=== PATIENT | female | born 1945 | race Caucasian/White ===

== ENCOUNTER 2018-03-24 06:14 | Inpatient (IN) | payer MEDICARE, OTHER, SELFPAY ==
[2018-03-04 10:07] VITALS: BMI 30.8
[2018-03-24] VITALS (23 sets, daily range): BP systolic 83–125; BP diastolic 45–73; PULSE 77–104; RESP 11–20; TEMP 35.8–36.7; O2SAT 93–100; BMI 30.9
--- NOTE | 2018-03-24 07:14 | PM.PREOP ---
Pre-operative Note Interval Note Pre-op Check: Yes History & Physical Reviewed by Physician and Yes Exam Performed Changes: No
[2018-03-24] MEDS: LACTATED RINGERS 1,000 ML 42 ML IV ×3 (07:32→12:43)
[2018-03-24] MEDS: CEFAZOLIN 2 GM/100 ML FROZ.PIGGY IV ×3 (08:00→19:16)
--- NOTE | 2018-03-24 08:36 | SUR.OPER ---
Right lateral on padded OR table. Head on pillow, gel axillary roll, pillow to support left arm. Legs flexed, pillows between legs, gel pad under down leg and ankle. Multiple passes of 3 inch cloth tape across shoulder, hip, upper and lower legs to secure patient on OR table.
[2018-03-24] MEDS: THROMBIN (BOVINE) 5,000 UNIT VIAL 5000 UNIT TOP (08:45)
[2018-03-24] MEDS: SODIUM CHLORIDE 0.9% 1,000 ML, GENTAMICIN 80 MG IRR ×2 (08:46)
[2018-03-24] MEDS: VANCOMYCIN 1,000 MG VIAL 1000 MG TOP (11:20)
[2018-03-24] MEDS: BUPIVACAINE 0.5% (PF) 4 ML, MORPHINE-PF 4 MG, BUTORPHANOL 1 MG, fentaNYL 100 MCG INJ (11:20)
--- NOTE | 2018-03-24 11:48 | DI.RAD.S_ITS ---
PROCEDURE: XR T AND L SPINE 2 TO 3 VIEWS INDICATIONS: T-10 TO L-2 XLIF AND FUSION TECHNIQUE: 2 views acquired of the thoracolumbar spine. COMPARISON: [facility] [place], [place], XR LUMBAR SPINE 2 OR 3 VIEWS, 12/31/2017, 11:16. FINDINGS: Bones: No acute fractures or dislocations. Visualized inferior ribs appear intact. No suspicious bony lesions. Soft tissues: No suspicious soft tissue calcifications. IMPRESSION: T10-L2 bilateral transverse pedicle screws and bilateral vertical fixation rods noted, and there also is a finding of interbody disc prosthesis at L1-L2 and L2-L3, previously present. Dictated by: Merritt Smith M.D. on 03/24/2018 at 12:06 Approved by: Merritt Smith M.D. on 03/24/2018 at 12:09
[2018-03-24] MEDS: ACETAMINOPHEN IV 1,000 MG/100 ML VIAL 400 MG IV (12:30)
--- NOTE | 2018-03-24 12:51 | P.OP_ITS ---
Operative Date/Time/Diagnoses Date of procedure: 03/24/18 Time of procedure: 12:36 Pre-op diagnosis: Lumbar stenosis with radiculopathy History of lumbar laminectomy and fusion Lumbar scoliosis Post-op diagnosis: same Procedure & Clinicians Procedure: L1-2 anterior column osteotomy and fusion T10 through L2 posterior fusion T10 through L2 instrumentation Removal of old segmental posterior spinous instrumentation from L2 through S1 Iliac crest bone graft Revision left-sided laminotomy at L5-S1 Use of microscope Placement of epidural catheter Same procedure as scheduled: Yes Indications: [age] year old female with intractable pain from stenosis. They had failed conservative management and requested operative intervention. Risks and benefits of surgery were discussed and appropriate consents were obtained. Surgeon: Yinak Horta Structures Technician: Martha Marte Anesthesia Type: General Operative Notes Findings: None Closure Type: primary Specimen(s): none sent Implants & Drains: NuVasive MAS reline screws Applied: catheter Estimated Blood Loss (mL): 250 Procedure in detail: Patient was brought to the operating room and intubated on the table. Time-out was performed. They were then rolled over to the lateral decubitus position with the [id number]. The table was bent and they were taped down in the correct position. X-rays were taken to confirm a true AP and lateral. Preoperative antibiotics were given. The left flank was prepped and draped in standard sterile fashion. Using fluoroscopy, a 3 cm incision was made above the iliac crest. We bluntly dissected down with Metzenbaum scissors and split the 3 abdominal muscle layers. We dissected out the retroperitoneal space and using finger guidance, brought our 1st dilator down to the psoas muscle. Using neuromonitoring and fluoroscopy, we placed it through the psoas onto the L1-2 disc space in an anterior position and gradually pulled the dilator posteriorly along the disc space. We placed our guidewire and measured our depth for the retractor. We then dilated with the next 2 dilators and then placed our retractor over the dilators. Position was confirmed with fluoroscopy and the retractor was locked down to the bar. We opened up the retractor and checked with neuro monitoring. We then placed the ac and again checked with neuro monitoring. The retractor was opened further and the ALL retractor was placed. An annulotomy was performed. We then performed a complete diskectomy with ring curette, pituitary, box osteotome. A Ivey was advanced across the disc space under fluoroscopy to release osteophytes on the far lateral side. We used an ALL retractor to protect the vessels anteriorly and released the anterior longitudinal ligament and anterior osteophytes. We could then pass our trials through there and significantly opened up the anterior column. This completed the anterior column osteotomy. We then used sequentially larger trials and confirmed under fluoroscopy. An XLIF cage was packed with Osteocell bone graft and impacted into the L1-2 disc space with fluoroscopy for the anterior fusion at this level. The wound was irrigated. The retractor was closed down. The ac was removed. We carefully removed the retractor with direct visualization to make sure there was no neurovascular or abdominal injury. Final x-rays were taken. The muscle fascia was closed, superficial tissue was closed. The skin was closed. Sterile dressing was placed. The patient was then rolled over on the well-padded prone position on the Fawad table. We used fluoroscopy to confirm that her old incision was over the screws. We then marked up to T10 along the level of her pedicles on the left hand side and then made 1 long incision utilizing her previous incision. Also using fluoroscopy we made an incision from T10-L2 over the right pedicles. Bovie was used to split the fascia on both sides. Using neural monitoring and fluoroscopy, we advanced Jamshidi needles down the bilateral pedicles of T10 through L2. These were switched to guidewires. We then tapped and placed our minimally invasive screws on the right side. We then measured, placed a arik and locked it down. This wound was irrigated. The fascia was closed. We then did a Jennifer muscle-splitting approach on the left side along the course of our guidewires until we came down to the transverse processes and facets from T10 through L2. A bur was used to decorticate the bone. We kept going down and exposed our old hardware. There was massive amounts of bony overgrowth at the L5-S1 fusion level and this was cleared off with a rongeur and osteotomes until we could expose the screws. The old screws were and arik were removed. We then placed a guidewire down the pedicle hole at L2. We then used fluoro and monitoring to tap over our guidewires and placed our screws from T10 through L2 on the left. A arik was measured placed and locked down. The wound was irrigated. We then carefully dissected medially and exposed the previous laminotomy at L5- S1 and cleared away the massive overgrowth until we were over the spinal canal as well as out laterally over the bony fusion. We then brought in the microscope. A left-sided revision laminectomy was performed at L5-S1 with an osteotome, a bur, a curette, and Kerrison rongeurs. Once we had the canal open we traced proximally with our Kerrison until we could expose our L5 root as it came off the dura. We then used a bur and osteotomes to remove the massive bony overgrowth. We started using the Kerrison to trace out along the L5 nerve root. We used the osteotome to expand the tunnel that had wrapped around the nerve root. We dissected and exposed all the way from pedicle to pedicle from L5-S1. We removed all the posterior overgrowth until we could easily swipe a ball probe cephalad, into the canal, distally along the S1 nerve root and all the way out laterally with a fully exposed L5 nerve root. The wound was copiously irrigated. A small stab incision was made over the PSIS and a Jamshidi needle was placed into the iliac crest and several mL of bone marrow was aspirated. This was mixed with our locally harvested bone graft as well as the remaining Osteocell and placed in the posterolateral gutter for fusion at T10 through L2. A deep drain was placed into the large empty space where we had removed her previous bony overgrowth. An epidural catheter was primed with 4mL of 0.5% bupivacaine, 100 mcg fentanyl, 4 mg Duramorph, 1 mg Stadol. The dura was depressed under the cephalad lamina with a ball probe and the epidural catheter was gently advanced 6 cm cephalad. The fascia was then closed. The epidural was then injected without resistance. The catheter was pulled and we closed more over the fascia. Vancomycin powder was placed in the wounds. The superficial and skin were closed. Sterile dressing was placed. The patient was then rolled over, extubated, brought to the recovery room with no complications. Complications: none Condition: stable Disposition: PACU Plan for aftercare: Inpatient. Up with physical therapy.
[2018-03-24] MEDS: HYDROMORPHONE 2 MG INJ 0.5 MG IV ×4 (13:15→13:35)
[2018-03-24] MEDS: LORazepam 2 MG/ML SYRINGE 0.25 MG IV ×2 (13:25→14:00)
[2018-03-24] MEDS: fentaNYL 100 MCG/2 ML INJ 50 MCG IV ×2 (13:44→14:17)
[2018-03-24] MEDS: hydrOXYzine 50 MG/ML INJ 25 MG IM (14:16)
--- NOTE | 2018-03-24 14:51 | SUR.PHASEI ---
PT TO ACUTE CARE, HAND OFF OF CARE TO RN. PT ABLE TO REST QUIETLY FOR SHORT PERIODS OF TIME, STATES PAIN IS BETTER, REMAINS ON OXYGEN, BACK DRESSING DRY AND INTACT, HEMOVAC PATENT, PT MOVING ALL EXTREMITIES.
[2018-03-24] MEDS: HYDROMORPHONE 1 MG INJ 0.5 MG IV ×3 (15:57→21:51)
[2018-03-24] MEDS: LACTATED RINGERS 1,000 ML 125 ML IV (15:57)
--- NOTE | 2018-03-24 16:02 | PC.NURSE ---
Post-op (late entry)- Arrived to room 210 approx 1430 from PACU. Drowsy but awakened easily to voice/touch. SpO2 on 2L 96-98%, cont pulse ox in place. VSS. Dressings to mid low back and L flank C/D/I. Hemovac patent and intact. Castillo to gravity, urine clear yellow. Denies N/V. Taking ice chips and water. Able to move all extremities. Oriented to room and call light. Fall precautions in place, bed alarm on.
[2018-03-24] MEDS: hydrOXYzine pamoate 25 MG CAPSULE PO ×2 (16:03→21:48)
[2018-03-24] MEDS: HYDROMORPHONE 2 MG TABLET PO (16:03)
[2018-03-24] MEDS: METOCLOPRAMIDE 10 MG/2 ML INJ IV (16:10)
[2018-03-24] MEDS: HYDROMORPHONE 4 MG TABLET PO ×2 (17:59→21:47)
[2018-03-24] MEDS: TRAMADOL 50 MG TABLET PO (18:37)
[2018-03-24] MEDS: diazePAM 2 MG TABLET PO (19:16)
[2018-03-24] MEDS: INSULIN ASPART 100 UNIT/ML INSULN PEN SUBCUT (19:23)
[2018-03-24] MEDS: INSULIN ASPART 100 UNIT/ML 10ML VIAL 11 UNIT SUBCUT (19:25)
[2018-03-24] MEDS: INSULIN GLARGINE 100 UNIT/ML 3ML PEN 60 UNIT SUBCUT (21:32)
[2018-03-24] MEDS: SIMVASTATIN 10 MG TABLET 5 MG PO (21:46)
[2018-03-24] MEDS: SENNOSIDES 8.6 MG TABLET 17.2 MG PO (21:46)
[2018-03-24] MEDS: GABAPENTIN 300 MG CAPSULE PO (21:47)
[2018-03-24] MEDS: ACETAMINOPHEN 325 MG TABLET 975 MG PO (21:48)
[2018-03-24] MEDS: DOCUSATE 100 MG CAPSULE PO (21:48)
[2018-03-25] VITALS (9 sets, daily range): BP systolic 71–120; BP diastolic 41–70; PULSE 80–105; RESP 16–20; TEMP 36.2–37.6; O2SAT 91–99
[2018-03-25] MEDS: LACTATED RINGERS 1,000 ML 125 ML IV (00:40)
[2018-03-25] MEDS: TRAMADOL 50 MG TABLET PO ×2 (00:47→04:50)
[2018-03-25] MEDS: diazePAM 2 MG TABLET PO ×2 (00:48→06:24)
[2018-03-25] MEDS: hydrOXYzine pamoate 25 MG CAPSULE PO ×3 (00:48→08:54)
[2018-03-25] MEDS: HYDROMORPHONE 4 MG TABLET PO ×2 (00:52→04:07)
[2018-03-25] MEDS: CEFAZOLIN 2 GM/100 ML FROZ.PIGGY IV (04:06)
[2018-03-25] MEDS: HYDROMORPHONE 1 MG INJ 0.5 MG IV ×2 (04:09→06:33)
[2018-03-25 06:09] LABS: Blood Urea Nitrogen 27 mg/dL (7-17); Calcium 8.5 mg/dL (8.4-10.2); Carbon Dioxide 30 mmol/L (22-32); Chloride 96 mmol/L (98-107); Estimated Glomerular Filt Rate > 60.0 mL/min (>60); Glucose 179 mg/dL (80-110); HEMOLYSIS < 15 (0-50); Potassium 4.5 mmol/L (3.4-5.1); Sodium 132 mmol/L (137-145)
--- NOTE | 2018-03-25 06:31 | PM.PNPO.1 ---
Subjective Date Patient Seen: 03/25/18 Time Patient Seen: 06:32 Interval history: Pain was manageable last evening about a 7/10. However over the past few hours she has taken all of her pain medication and the spasms in her back are over 10. Denies any pain in the legs. Exam Vital Signs (past 8 hours): - 03/25/18 00:00 03/25/18 04:00 03/25/18 06:10 Temperature 98.4 F 99.7 F H 99.7 F H Pulse Rate 102 H 104 H Respiratory Rate 17 18 Blood Pressure 93/51 L 89/53 L Pulse Oximetry 99 94 Oxygen Delivery Method Nasal Cannula Oxygen Flow Rate 2 Const Orientation: alert and oriented x3 Back/Spine/Pelvis Other: 5/5 motor both lower extremities. Dressing has been reinforced but new dressing is clean dry intact Objective Labs Result Diagrams: 03/25/18 05:45 03/25/18 05:45 Labs: Laboratory Results - last 24 hr 03/25/18 03/25/18 05:45 05:45 Hgb 9.0 L Hct 26.0 L Sodium 132 L Potassium 4.5 Chloride 96 L Carbon Dioxide 30 BUN 27 H Creatinine 0.90 Estimated GFR > 60.0 BUN/Creatinine Ratio 30.0 H Glucose 179 H Calcium 8.5 Assessment & Plan Post-op Postoperative Procedures Operation Date: 03/24/18 07:45 Actual Procedures Side Surgeon p T10-L2 Post Instru. Fusion w/Bone Graft. L1-2 Ant Osteotomy & Instru. Fusion. RMVL old screws. Revision Laminectomy L5-S1(LEFT) Yinka Horta MD we are going to put her on a MASH PREPARATORY OPERATOR to try to give her better pain relief so she can start mobilizing. She does have some acute blood loss anemia. Her vitals are stable and she does not need a transfusion but we will recheck this again tomorrow. I have let her know that I will be out of town for the next few days but my partners will be available if there are any issues.
--- NOTE | 2018-03-25 07:55 | PC.NURSE ---
late entry for 11-7 shift: pt's back pain at start of shift was rated 7/10.by aprox half into shift pain began incr'ing depite medicating w/4mg po dilaudid,0.5mg iv dilaudid, tramadol 50mg po, vistaril 25mg, and 2mg po valium as ordered. also ice pack to area and repositioning w/2 assist q 2hrs. by 0600 pt rated pain [address] Horta in house at that time,relayed info r/t incr pain, initial low bp's. into see pt. new order to start dilaudid clinical project leader 0.2/10/6 w/1mg/hr basal dose, started aprx 0650 w/loading dose of 0.4mg, explained to pt settings and use, by 0700 pt stated pain decr'd to 18.
[2018-03-25] MEDS: MINOCYCLINE HCL 100 MG CAPSULE PO (08:49)
[2018-03-25] MEDS: FUROSEMIDE 40 MG TABLET 80 MG PO (08:50)
[2018-03-25] MEDS: GEMFIBROZIL 600 MG TABLET PO ×2 (08:50→17:15)
[2018-03-25] MEDS: ACETAMINOPHEN 325 MG TABLET 975 MG PO ×3 (08:50→20:55)
[2018-03-25] MEDS: LISINOPRIL 5 MG TABLET PO (08:50)
[2018-03-25] MEDS: DOCUSATE 100 MG CAPSULE PO ×2 (08:51→20:55)
[2018-03-25] MEDS: ASPIRIN EC 81 MG TABLET PO (08:51)
[2018-03-25] MEDS: SPIRONOLACTONE 50 MG TABLET 100 MG PO (08:52)
[2018-03-25] MEDS: INSULIN ASPART 100 UNIT/ML INSULN PEN SUBCUT ×3 (09:08→17:15)
[2018-03-25] MEDS: DULOXETINE 30 MG CAPSULE 60 MG PO (09:11)
--- NOTE | 2018-03-25 10:13 | PT.IIE ---
Current Diagnoses Scoliosis, unspecified (03/24/18) Spinal stenosis, lumbar region with neurogenic claudication (03/24/18) Arthrodesis status (03/24/18) Surgery Performed Operation Date: 03/24/18 07:45 Actual Procedures p T10-L2 Post Instru. Fusion w/Bone Graft. L1-2 Ant Osteotomy & Instru. Fusion. RMVL old screws. Revision Laminectomy L5-S1(LEFT) - Yinka Horta MD Surgical History (Last Updated 03/04/18 @ 10:50 by Elsie Arechiga RN) History of bilateral cataract extraction (Acute) History of tonsillectomy and adenoidectomy (Acute) History of total right hip arthroplasty (Acute) Hx of appendectomy (Acute) Hx of bilateral breast reduction surgery (Acute) Hx of cholecystectomy (Acute) Hx of right breast biopsy (Acute) S/P lumbar laminectomy (Acute) S/p bilateral blepharoplasty (Acute) Medical History (Last Updated 03/04/18 @ 10:39 by Elsie Arechiga RN) Arthritis (Acute) Asthma (Acute) BCC (basal cell carcinoma of skin) (Acute) Depression (Acute) Diabetes (Acute) Edema (Acute) GERD (gastroesophageal reflux disease) (Acute) [place] (hard of hearing) (Acute) History of hysterectomy (Acute) Low back pain (Acute) Melanoma (Acute) Numbness (Acute) Osteoarthritis (Acute) Psoriasis (Acute) Sciatica (Acute) Scoliosis (Acute) Whiplash (Acute) Physical Therapy Inpatient Evaluation/Re-Eval M1 PT/OT-IP Prior Functional Status Start: 03/25/18 11:24 Freq: NEEDED Status: Active Protocol: Document 03/25/18 10:13 AB (Rec: 03/25/18 11:41 AB [id number]) Medical Review Prior Functional Status Medical History Reviewed Yes Communication able to make needs known Mobility and Gait pt stated that she is modified independent with all mobilities and ambulation without AD but occasionally uses a SPC for long distance mobility Social History Household Members none Living Arrangements Mobile home Number of Floors (Floors) One Floor Number of Stairs To Enter/Railing? has 3 steps to enter with bilateral rails Home Environment Standard Height Toilet Walk in Shower Home Equipment Front Wheel Walker Straight Cane Hand Held Shower Bed Rails Grab Bars In Shower Additional Social History Comment pt's friend will stay with pt as long as pt needs assistance . uses sides of door frame to assist her with getting up from the toilet has a stool to step up to get into the bed M2 PT-IP Current Condition Start: 03/25/18 11:24 Freq: NEEDED Status: Active Protocol: Document 03/25/18 10:13 AB (Rec: 03/25/18 11:41 AB [id number]) Physical Therapy Current Condition Current Condition Evaluation Date 03/25/18 Treatment Diagnosis s/p T10-L2 posterior fusion and instrumentation; difficulty in walking Onset Date 03/24/18 Precautions Lumbar Precautions Log Roll No Twisting Limit Bending Lifting Restriction of 10 lbs Gait Belt above Incisional Area M3 PT-IP Subjective Start: 03/25/18 11:24 Freq: NEEDED Status: Active Protocol: Document 03/25/18 10:13 AB (Rec: 03/25/18 11:41 AB [id number]) Subjective Physical Therapy Visit Type Type Initial Evaluation Visit Start Time 10:13 Visit Stop Time 11:04 Total Visit Minutes 51 Number of PROFILE MILL OPERATOR TAPE CONTROL Visits 0 Physical Therapy Visit Comments Patient Comments pt agreeable to do PT Patient Goals to go home Therapy Pain Assessment Pain When Pain Assessed At Rest Pain Present Pain Present Pain Reported Location lower back Intensity 6 Scale Used Numeric (1 - 10) Pain Management Techniques Apply Cold Re-positioning Timing of Activity with Medications M4 PT-IP Mobility and Gait Start: 03/25/18 11:24 Freq: NEEDED Status: Active Protocol: Document 03/25/18 10:13 AB (Rec: 03/25/18 11:41 AB [id number]) PT-Bed Mobility Assessment Rolling Type of Rolling Log Rolling Level of Assist Maximal Assistance 1 Person Assistance Supine to Sit Supine to Sit Minimal Assistance 1 Person Assistance Bedrails Scooting Scooting to Edge of Bed Minimal Assistance PT-Transfer Assessment Sit to and From Stand Sit to and from Stand Moderate Assistance 1 Person Assistance Use of Upper Extremities Equipment Transfer Assistive Device Gait Belt Front Wheeled Walker Orthotic/Prosthetic Devices or Brace: No Transfers Transfer Destination Chair Transfer Technique Stand Step Pivot Transfer Ability Level of Assist Moderate Assistance 1 Person Assistance Use of Upper Extremities Gait Assessment Gait Gait Assistance Required: Moderate Assistance 1 Person Assist Distance (Feet) 20 Able to Maintain Weight Bearing Status Yes During Gait Assistive Devices Assistive Device Gait Belt Front Wheeled Walker Orthotic/Prosthetic Devices or Brace: No Gait Deviations General Gait Pattern Antalgic Decreased Stride Length Decreased Feet Clearance Factors Limiting Gait Function Factors Limiting Gait Function Decreased Activity Tolerance Decreased Strength Limited Range of Motion Pain Poor Balance Poor Safety Awareness M5 PT-IP Objective Assessments Start: 03/25/18 11:24 Freq: NEEDED Status: Active Protocol: Document 03/25/18 10:13 AB (Rec: 03/25/18 11:41 AB [id number]) Orientation Orientation/Cognition Level of Alertness Alert Orientation Name Age Birthday Month Date Year Day of Week Place Situation Safety Awareness Decreased Safety Awareness Gross Range of Motion Lower Extremity ROM Assessment Within Functional Limits Strength Lower Extremity Strength Assessment Bilaterally Impaired Hip 4-/5 Knee 4-/5 Muscle Tone Muscle Tone WNL Yes M6 PT-IP Treatment Start: 03/25/18 11:24 Freq: NEEDED Status: Active Protocol: Document 03/25/18 10:13 AB (Rec: 03/25/18 11:41 AB [id number]) Physical Therapy Treatment Education Education Provided Precautions Weight Bearing Status Post-Op Packet Safety M7 PT-IP Assessment and Plan Start: 03/25/18 11:24 Freq: NEEDED Status: Active Protocol: Document 03/25/18 10:13 AB (Rec: 03/25/18 11:41 AB [id number]) PT Summary Assessment and Plan Potential Rehabilitation Potential Fair Status of Condition at Evaluation Evolving Summary Impairments Pain ROM Strength Balance Coordination Bed Mobility Transfers Gait Activity Tolerance Assessment Summary pt requiring one person assist with mobility. d/c plan depending on progress. caregiver training and stair climbing training will be conducted when appropriate. will continue to assess. Goals Bed Mobility Goal Standby Assistance Transfer Goal Standby Assistance Front Wheeled Walker Gait Goal Standby Assistance Front Wheel Walker Gait Distance 150 Other Goals up/down 3 steps with bialteral rails SBA Days to Meet Goals 3 Frequency of Treatment Frequency Of Treatment Twice a Day Treatment Plan Physical Therapy Treatment Plan Bed Mobility Training Transfer Training Gait Training Therapeutic Exercise Balance Retraining Post Op Education Discharge Planning Hot or Cold Pack Neuromuscular Re-ed Coordination Retraining Manual Therapy Recommendations To Nursing Amount of Assist Needed 1 Person Assist Discharge Recommendations PT Discharge Recommendations Home with 27/01 Assist Home Health
--- NOTE | 2018-03-25 11:58 | OT.IP.EVAL ---
Current Diagnoses Scoliosis, unspecified (03/24/18) Spinal stenosis, lumbar region with neurogenic claudication (03/24/18) Arthrodesis status (03/24/18) Surgery Performed Operation Date: 03/24/18 07:45 Actual Procedures p T10-L2 Post Instru. Fusion w/Bone Graft. L1-2 Ant Osteotomy & Instru. Fusion. RMVL old screws. Revision Laminectomy L5-S1(LEFT) - Yinka Horta MD Past Medical History (Last Updated 03/04/18 @ 10:39 by Elsie Arechiga RN) Arthritis (Acute) Asthma (Acute) BCC (basal cell carcinoma of skin) (Acute) Depression (Acute) Diabetes (Acute) Edema (Acute) GERD (gastroesophageal reflux disease) (Acute) FOND DU LAC (hard of hearing) (Acute) History of hysterectomy (Acute) Low back pain (Acute) Melanoma (Acute) Numbness (Acute) Osteoarthritis (Acute) Psoriasis (Acute) Sciatica (Acute) Scoliosis (Acute) Whiplash (Acute) Surgical History (Last Updated 03/04/18 @ 10:50 by Elsie Arechiga RN) History of bilateral cataract extraction (Acute) History of tonsillectomy and adenoidectomy (Acute) History of total right hip arthroplasty (Acute) Hx of appendectomy (Acute) Hx of bilateral breast reduction surgery (Acute) Hx of cholecystectomy (Acute) Hx of right breast biopsy (Acute) S/P lumbar laminectomy (Acute) S/p bilateral blepharoplasty (Acute) Occupational Therapy Inpatient Evaluation/Re-Eval M1 PT/OT-IP Prior Functional Status Start: 03/25/18 11:24 Freq: NEEDED Status: Active Protocol: Document 03/25/18 11:58 DENI (Rec: 03/26/18 16:17 DENI [id number]) Medical Review Prior Functional Status Medical History Reviewed Yes Diet/Fluid Consistency Regular Communication WNL Mobility and Gait pt stated that she is modified independent with all mobilities and ambulation without AD but occasionally uses a SPC for long distance mobility Activities of Daily Living and IADL's Pt indep with all self care, IADLS, lives alone, drives. 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 Social History Household Members none Living Arrangements Mobile home Number of Floors (Floors) One Floor Number of Stairs To Enter/Railing? 3 stairs with B rails to enter Home Environment Standard Height Toilet Walk in Shower Built-In Shower Seat Bidet Home Equipment Front Wheel Walker Hand Held Shower Long Handled Sponge Long Handled Shoe Horn Senior Reservations Agent Sock Aid Grab Bars In Shower Employment Status Retired Additional Social History Comment language translator and long sponge provided; pt was walker bag and tray; pt states she will borrow RTS with siderails M2 OT-IP Current Condition Start: 03/26/18 11:24 Freq: Status: Active Protocol: Document 03/25/18 11:58 PJM (Rec: 03/26/18 16:17 [facility] [id number]) Occupational Therapy Current Condition Current Condition Evaluation Date 03/25/18 Treatment Diagnosis decreased self care, mobility s/p T10-L2 fusion, removal of old hardware Diagnosis Onset Date 03/24/18 Post Operative Precautions Lumbar Precautions Log Roll No Twisting Limit Bending Lifting Restriction of 10 lbs Gait Belt above Incisional Area M3 OT- IP Subjective and Pain Start: 03/26/18 11:24 Freq: Status: Active Protocol: Document 03/25/18 11:58 PJM (Rec: 03/26/18 16:17 [facility] [id number]) OT- Subjective Occupational Therapy Visit Type Type Initial Evaluation Visit Start Time 11:30 Visit Stop Time 11:58 Total Visit Minutes 28 Notes Pt drowsy from STRATEGIC ALLIANCES MANAGER pain meds and had poor pain control overnight per chart notes. Occupational Therapy Visit Comments Patient Comments This pain is really bad. Patient/Caregiver Goals to go home with 24 assist from close friend OT Pain Assessment Pain When Pain Assessed After Treatment Pain Present Pain Present Pain Reported Location lower back Intensity 9 Scale Used Numeric (1 - 10) Description Aching Acute Pain Behaviors Guarding Wincing Management Techniques Distraction Timing of Activity with Medications M4 OT- IP ADL's Start: 03/26/18 11:24 Freq: Status: Active Protocol: Document 03/25/18 11:58 PJM (Rec: 03/26/18 16:17 [facility] [id number]) OT [id number]-[id number] General Evaluation Self-Feeding Ability Independent OT ADL-Grooming General Evaluation Grooming Ability Standby Assistance Areas Needing Assistance Face Washing Comments OT Grooming Comments seated in chair, pt declines other grooming at this time OT ADL-Oral Care Comments Oral Care Comments pt declined this session OT ADL-Dressing General Eval Lower Body Dressing Ability Total Assistance Areas Needing Assistance Underpants/Brief Pants/Shorts Socks Shoes Assistive Devices Dressing Assistive Devices Long Handled Shoe Horn Senior Reservations Agent Sock Aid Comments OT Dressing Comments pt familiar with use of language translator and sock aid, but states she rarely wears socks OT ADL-Toileting General Evaluation Toileting Ability Total Assistance Areas Needing Assistance Empty Catheter or Colostomy Comments OT Toileting Comments zendejas at present OT ADL-Bathing Comments OT Bathing Comments to be assessed as activity level improves M5 OT- IP IADL's Start: 03/26/18 11:24 Freq: Status: Active Protocol: Document 03/25/18 11:58 PJM (Rec: 03/26/18 16:17 [facility] [id number]) OT-Instrumental Activities of Daily Living Deficits IADL Deficits Identified Deficits Home Safety Awareness Awareness of Need for Assistance at Home Good Awareness Ability to Problem Solve Emergency Able to Problem Solve Situations Medication Management Medication Management No Deficits Identified Money Management Money Management No Deficits Identified Meal Preparation Meal Preparation Caregiver Provides Assist Meal Preparation Comments friend to assist until pt able Proof Coins Inspector Proof Coins Inspector Caregiver Provides Assist Proof Coins Inspector Comments friend to assist until pt able Driving Driving Caregiver Provides Assist Driving Comments friend to assist until pt able M6 OT- IP Functional Cognition Start: 03/26/18 11:24 Freq: Status: Active Protocol: Document 03/25/18 11:58 PJM (Rec: 03/26/18 16:17 [facility] [id number]) Cognitive Factors Limiting Selfcare Function Cognitive Ability Level of Alertness Drowsy Patient Orientation Name Age Birthday Month Date Year Day of Week Place Situation Attention Span Ability Capable of Focused Attention Ability to Follow Commands Able to Follow One Step Commands Cognitive Comments Cognitive Assessment Comments Pt quite drowsy from STRATEGIC ALLIANCES MANAGER but oriented. Too drowsy to participate in education re: adapted ADLs this session. OT- Vision and Hearing OT- Hearing Assessment OT- Hearing Assessment WFL OT- Vision Assessment Visual Acuity WFL Glasses All The Time Vision Assessment Comments Pt denies any recent changes. M7 OT- IP Mobility and Balance Start: 03/26/18 11:24 Freq: Status: Active Protocol: Document 03/25/18 11:58 PJM (Rec: 03/26/18 16:17 [facility] [id number]) OT-Transfer Assessment Comments Mobility Comments Pt seen up in chair this session. See P.T. notes. Pt slow to mobilize due to high pain level. OT- Gait Assessment Comments Gait Ability Comments Pt seen up in chair this session. See P.T. notes. Pt slow to mobilize due to high pain level. OT- Balance Assessment Comments Other Balance Tests/Deviations/Treatment Pt seen up in chair this : session. See P.T. notes. Pt slow to mobilize due to high pain level. M8 OT- IP Objective Assessments Start: 03/26/18 11:24 Freq: Status: Active Protocol: Document 03/25/18 11:58 PJM (Rec: 03/26/18 16:17 PJ [id number]) OT Gross Range of Motion Upper Extremity Range of Motion Assessment Within Functional Limits OT Strength Upper Extremity Strength Assessment Within Functional Limits OT- Coordination Assessment Comments Coordination Comments BUE WFL OT-Muscle Tone Assessment Muscle Tone WNL Yes OT Sensation Assessment Comments Summary Comments Pt reports intermittent numbness in fingertips which is spinal related not from her diabetes per her MD. Edema Edema Absent M9 OT- IP Assessment and Plan Start: 03/26/18 11:24 Freq: Status: Active Protocol: Document 03/25/18 11:58 PJM (Rec: 03/26/18 16:17 PJ [id number]) OT Summary Assessment and Plan Potential Rehabilitation Potential Good Analytic Complexity at Evaluation Low Summary OT Impairments Pain Strength Balance Functional Mobility Grooming Dressing Toileting Bathing Toilet Transfers Shower Transfers Assessment Summary Low complexity OT assessment completed with pt participation limited today by decreased pain control and drowsiness from STRATEGIC ALLIANCES MANAGER. Pt currently has significant performance deficits in all functional mobility/transfers, standing grooming, dressing, bathing and toileting. Pt's goal is to d/c home with 24 hr assist from close friend who cannot do much lifting. Further d/c recommendations to follow as pt progresses here. Goals Grooming Goal Standby Assistance Dressing Goal Standby Assistance Toileting Goal Standby Assistance Bathing Goal Minimal Assistance Hand Held Shower Sprayer Toilet Transfer Goal Standby Assistance Raised Toilet Seat With Rails Shower Transfer Goal Contact Guard Assistance Patient/Caregiver Education Goal Demonstrate Post-Op Precautions Demonstrate Energy Conservation and Pacing Caregiver Independent Assisting Patient OT-Other Goals Grooming to be standing with good body mechanics and safety awareness. Days to Meet Goals 5 Frequency of Treatment Frequency Of Treatment Once a Day Treatment Plan OT Treatment Plan ADL Training Functional Mobility Patient/Family Education Discharge Planning Discharge Recommendations OT Discharge Recommendations Home with 24/7 Assist Other Discharge Recommendations vs SNF pending progress
--- NOTE | 2018-03-25 12:18 | CM.DPC ---
Discharge Planning/Care Management DCP: assessment: case received, EMR reviewed and met this morning with pt. Introduced self and role. 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 Surgeon: Dr. Horta Payer: Medicare and [employer]. INPT admission order: confirmed by UR RN. Pt experienced a great deal of pain during the night and at time of this discussion she had not been up yet with PT or OT. She noted her plan was for home with her friend to say, HH PT and outpt PT at a clinic she has used before in [place] but I would have to drive myself so it may take awhile.. She is aware of her snf rehab benefit and says she is very open to what is best, noting she did not expect this level of pain. She has had prior spinal surgeries with Dr. Horta, the last one at [facility] and from there to a snf. P: in process. [facility] is not yet alerted to possible need. Will await PT/OT input and DCP team will be following. CM Discharge Assessment Start: 03/25/18 12:14 Freq: Status: Active Protocol: Document 03/25/18 12:14 ITV (Rec: 03/25/18 12:18 ITV [id number]) Discharge Planning Assessment History Provided By Patient Medical Record Prior Living Arrangements Mobile home Household Members none Comment pt has a long time friend who is an RN coming to stay with her during her recovery. Comment At this time pt is open to whatever d/c disposition the care team recommends. She had planned on home with her friend and [facility]: PT but is aware of the snf benefit and has used this before. Medicare Choice List Provided Yes SNF/HH Preference provided at this time for [facility]: choice: [facility] if they can see her 24-48 hrs after d/c. Whiteboard Updated in Patient Room with Yes name and ext. # of Cna Pct Review Status In Process Next Review Type Continued Stay Review
--- NOTE | 2018-03-25 14:05 | PT.IPTN ---
Current Diagnoses Scoliosis, unspecified (03/24/18) Spinal stenosis, lumbar region with neurogenic claudication (03/24/18) Arthrodesis status (03/24/18) Surgery Performed Operation Date: 03/24/18 07:45 Actual Procedures p T10-L2 Post Instru. Fusion w/Bone Graft. L1-2 Ant Osteotomy & Instru. Fusion. RMVL old screws. Revision Laminectomy L5-S1(LEFT) - Yinka Horta MD Physical Therapy Treatment Note M2 PT-IP Current Condition Start: 03/25/18 11:24 Freq: NEEDED Status: Active Protocol: Document 03/25/18 10:13 AB (Rec: 03/25/18 11:41 AB [id number]) Physical Therapy Current Condition Current Condition Evaluation Date 03/25/18 Treatment Diagnosis s/p T10-L2 posterior fusion and instrumentation; difficulty in walking Onset Date 03/24/18 Precautions Lumbar Precautions Log Roll No Twisting Limit Bending Lifting Restriction of 10 lbs Gait Belt above Incisional Area M3 PT-IP Subjective Start: 03/25/18 11:24 Freq: NEEDED Status: Active Protocol: Document 03/25/18 14:05 AB (Rec: 03/25/18 16:20 AB [id number]) Subjective Physical Therapy Visit Type Type Treatment Note Visit Start Time 14:05 Visit Stop Time 14:46 Total Visit Minutes 41 Number of CLINICAL NUTRITIONIST Visits 0 Physical Therapy Visit Comments Patient Comments pt stated that she sat up on the chair too long and RLE is now numb Therapy Pain Assessment Pain When Pain Assessed At Rest Pain Present Pain Present Pain Reported Location lower back Intensity 30 Scale Used Numeric (1 - 10) Pain Behaviors Guarding Moaning Restlessness Pain Management Techniques Apply Cold Timing of Activity with Medications M4 PT-IP Mobility and Gait Start: 03/25/18 11:24 Freq: NEEDED Status: Active Protocol: Document 03/25/18 14:05 AB (Rec: 03/25/18 16:20 AB [id number]) PT-Bed Mobility Assessment Rolling Type of Rolling Log Rolling Level of Assist Moderate Assistance 1 Person Assistance Sit to Supine Sit to Supine Moderate Assistance 1 Person Assistance PT-Transfer Assessment Sit to and From Stand Sit to and from Stand Moderate Assistance 1 Person Assistance Gait Assessment Gait Gait Assistance Required: Minimum Assistance Moderate Assistance Distance (Feet) 30 Able to Maintain Weight Bearing Status Yes During Gait Assistive Devices Assistive Device Gait Belt Front Wheeled Walker Orthotic/Prosthetic Devices or Brace: No Gait Deviations General Gait Pattern Antalgic Decreased Stride Length Decreased Feet Clearance Lateral Trunk Lean Factors Limiting Gait Function Factors Limiting Gait Function Decreased Activity Tolerance Decreased Strength Limited Range of Motion Pain Poor Balance Poor Safety Awareness Comments Gait Comments pt can be impulsive M5 PT-IP Objective Assessments Start: 03/25/18 11:24 Freq: NEEDED Status: Active Protocol: Document 03/25/18 10:13 AB (Rec: 03/25/18 11:41 AB [id number]) Orientation Orientation/Cognition Level of Alertness Alert Orientation Name Age Birthday Month Date Year Day of Week Place Situation Safety Awareness Decreased Safety Awareness Gross Range of Motion Lower Extremity ROM Assessment Within Functional Limits Strength Lower Extremity Strength Assessment Bilaterally Impaired Hip 4-/5 Knee 4-/5 Muscle Tone Muscle Tone WNL Yes M6 PT-IP Treatment Start: 03/25/18 11:24 Freq: NEEDED Status: Active Protocol: Document 03/25/18 14:05 AB (Rec: 03/25/18 16:20 AB [id number]) Physical Therapy Treatment Education Education Provided Precautions Weight Bearing Status Post-Op Packet Safety M7 PT-IP Assessment and Plan Start: 03/25/18 11:24 Freq: NEEDED Status: Active Protocol: Document 03/25/18 14:05 AB (Rec: 03/25/18 16:20 AB [id number]) PT Summary Assessment and Plan Potential Rehabilitation Potential Fair Summary Impairments Pain ROM Strength Balance Coordination Sensation Tone Cognition Bed Mobility Transfers Gait Activity Tolerance Progress Towards Goals Slow Progress due to Pain Slow Progress due to Activity Tolerance Assessment Summary pt requiring mod A and cues with mobility. pt's friend who will assist pt at home stated that she can assist pt but limited with providing physical assistance. d/c plan depending on progress and level of assistance caregiver can provide pt. caregiver training will be conducted when appropriate. Goals Bed Mobility Goal Standby Assistance Transfer Goal Standby Assistance Front Wheeled Walker Gait Goal Standby Assistance Front Wheel Walker Gait Distance 150 Other Goals up/down 3 steps with bialteral rails SBA Days to Meet Goals 3 Frequency of Treatment Frequency Of Treatment Twice a Day Treatment Plan Physical Therapy Treatment Plan Bed Mobility Training Transfer Training Gait Training Therapeutic Exercise Balance Retraining Post Op Education Discharge Planning Hot or Cold Pack Neuromuscular Re-ed Coordination Retraining Manual Therapy Recommendations To Nursing Amount of Assist Needed 1 Person Assist Discharge Recommendations PT Discharge Recommendations Home with 27/01 Assist Home Health
[2018-03-25] MEDS: HYDROMORPHONE PCA 6 MG/30 ML PCA.VIAL 1 MG IV ×3 (14:27→21:00)
--- NOTE | 2018-03-25 14:29 | PC.NURSE ---
1430 Pt ambulating i the room w/assist of PT. GARLAND MAKER intact, used 9.7,Pt states good pain mgmnt, drsg to back c,d,i. hemovac & zendejas intact.
[2018-03-25] MEDS: METOCLOPRAMIDE 10 MG/2 ML INJ IV (15:43)
--- NOTE | 2018-03-25 18:57 | PC.NURSE ---
OPTICAL INSTRUMENTS SUPERVISOR PLACED TO CORRECT SETTINGS,PATIENT IS TALKING,MOVING IN BED,AND TOLERATING DIET WITHOUT NAUSEA.VALLECILLO IS PATENT AND SECURE TO PATIENT.HEMOVAC IN PLACE.DENIES NEEDS AT THIS TIME
[2018-03-25] MEDS: SENNOSIDES 8.6 MG TABLET 17.2 MG PO (20:56)
[2018-03-25] MEDS: GABAPENTIN 300 MG CAPSULE PO (20:56)
[2018-03-25] MEDS: SIMVASTATIN 10 MG TABLET 5 MG PO (20:56)
[2018-03-25] MEDS: INSULIN GLARGINE 100 UNIT/ML 3ML PEN 60 UNIT SUBCUT (20:57)
[2018-03-25] MEDS: SODIUM CHLORIDE 0.9% 250 ML 21 ML IV (23:15)
[2018-03-26] VITALS (7 sets, daily range): BP systolic 80–114; BP diastolic 40–62; PULSE 77–102; RESP 18; TEMP 36.4–37.7; O2SAT 92–97
--- NOTE | 2018-03-26 01:10 | PC.NURSE ---
Addendum entered by Adeline Pizarro R.N. 03/26/18 06:12: BP this morning improved at 103/54. Patient's pain currently 9/10 but has been asleep and no longer has continuous PRACTICE REPRESENTATIVE. Assisted to reposition and encouraged use of PRACTICE REPRESENTATIVE. After using PRACTICE REPRESENTATIVE pain coming down and now at 6/10 and more tolerable. States pain is only in back at this time. Had 350cc UOP this shift and 15cc from hemovac. Original Note: Addendum entered by Adeline Pizarro R.N. 03/26/18 03:17: BP after stopping continuous Dilaudid infusion + bolus is now 93/45 Original Note: Addendum entered by Adeline Pizarro R.N. 03/26/18 02:18: [id number] Dr Cleaning returned call after being paged 3 times. Informed of low BP, UOP and PRACTICE REPRESENTATIVE settings. See new orders. Original Note: Patient is alert and oriented. Breath sounds CTA with RA sat of 96%. HRR but BP low at 80/40; patient is asymptomatic and states she typically trends low. Due to high dose of pain meds paged to inform of low BP. Denies nausea. BT present and is passing flatus but abdomen is distended and firm to touch. Dressing to back and left hip are CDI. Hemovac is intact and compressed. Indwelling catheter is patent with only 250cc UOP previous shift and only approximately 100cc in bag at this time. Patient is suppose to have catheter d'cd in a.m. but refusing to have this done despite information as to risks of leaving catheter in. Assisted to reposition q2h. At shift change stated pain was 10/10 but tolerable as last night it was 20/10. Currently states pain is well controlled at 0/10 with PRACTICE REPRESENTATIVE infusing at 0.2mg/hr and bolus doses of 0.3mg/hr as needed. 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 Declines to wear SCD's so reminded to ankle wave. Fall risk score is high so bed alarm activated.
[2018-03-26] MEDS: SODIUM CHLORIDE 0.9% 250 ML IV (02:10)
[2018-03-26 05:22] LABS: Add Manual Diff / Slide Review NO; Basophils Percent Auto 0.3 % (0-2); Eosinophils Percent Auto 1.8 % (2-4); Hematocrit 22.1 % (36-46); Hemoglobin 7.6 g/dL (12.0-16.0); Lymphocytes Percent Auto 14.8 % (25-40); Mean Corpuscular HGB Conc 34.4 % (30-36); Mean Corpuscular Hemoglobin 33.8 PG (26-34); Mean Corpuscular Volume 98.4 fL (80-100); Monocytes Percent Auto 8.4 % (3-14); Neutrophils Absolute Auto 8100 /uL (3000-5900); Neutrophils Percent Auto 74.7 % (50-75); Platelet Count 167 X10^3/uL (150-400); Red Blood Cell Count 2.24 X10^6/uL (4.0-5.2); Red Cell Distribution Width 12.2 % (11.6-14.8); White Blood Cell Count 10.8 X10^3/uL (4.5-11.0)
[2018-03-26] MEDS: HYDROMORPHONE PCA 6 MG/30 ML PCA.VIAL IV ×3 (05:35→20:45)
[2018-03-26] MEDS: MINOCYCLINE HCL 100 MG CAPSULE PO (05:59)
[2018-03-26] MEDS: GEMFIBROZIL 600 MG TABLET PO ×2 (05:59→16:29)
[2018-03-26] MEDS: diazePAM 2 MG TABLET PO ×2 (07:58→08:03)
[2018-03-26] MEDS: ACETAMINOPHEN 325 MG TABLET 975 MG PO ×3 (07:58→20:39)
[2018-03-26] MEDS: DULOXETINE 30 MG CAPSULE 60 MG PO (07:58)
--- NOTE | 2018-03-26 08:00 | PM.PNPO.1 ---
Subjective Date Patient Seen: 03/26/18 Time Patient Seen: 08:00 Interval history: Patient is postop day [address] Horta. She is stil having a lot of pain. She was on a continuous DEFECTIVE CIGARETTE SLITTER for pain which helped with pain management but last night her O2 saturation dropped and she is on a standard DEFECTIVE CIGARETTE SLITTER now which is not really controlling her pain. Has not been able to mobilize with physical therapy. Castillo catheter still in. BP has been running low. 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 She has help when she goes home. Exam Vital Signs (past 8 hours): - 03/26/18 00:54 03/26/18 03:17 03/26/18 05:03 Temperature 99.8 F H 98.3 F Pulse Rate 87 97 H Respiratory Rate 18 18 Blood Pressure 80/40 L 93/45 L 103/54 L Pulse Oximetry 93 95 Oxygen Delivery Method Room Air Oxygen Flow Rate 0 Narrative Exam Narrative: Pt in bed. Alert orient x3. Surgical dressing had soaked through. No active bleeding. New dressing applied with 4x4's and coversite. Thomas calves soft and nontender. Meovac drain in - 35ml . Castillo in. 5/5 BLE. Numbness in toes. Objective Labs Result Diagrams: 03/26/18 04:55 03/25/18 05:45 Labs: Laboratory Results - last 24 hr 03/26/18 04:55 WBC 10.8 RBC 2.24 L Hgb 7.6 L Hct 22.1 L MCV 98.4 MCH 33.8 MCHC 34.4 RDW 12.2 Plt Count 167 Neut % (Auto) 74.7 Lymph % (Auto) 14.8 L Lynn % (Auto) 8.4 Eos % (Auto) 1.8 L Baso % (Auto) 0.3 Neut # (Auto) 8100 H Assessment & Plan Post-op Postoperative Procedures Operation Date: 03/24/18 07:45 Actual Procedures Side Surgeon p T10-L2 Post Instru. Fusion w/Bone Graft. L1-2 Ant Osteotomy & Instru. Fusion. RMVL old screws. Revision Laminectomy L5-S1(LEFT) Yinka Horta MD PD 2. One dose of dexamethasone 10mg to help with post op pain. Continue DEFECTIVE CIGARETTE SLITTER today will try to convert patient to oral pain meds tomorrow. Increase diazapem to 4mg q4h. NS bolus 500ml for hypotension. Iron and VT C for post op anemia. Mobile with PT. D/C drain this afternoon. Continue Castillo until more mobile. Hope to D/C home in couple of days.
[2018-03-26] MEDS: DOCUSATE 100 MG CAPSULE PO ×2 (08:01→20:39)
[2018-03-26] MEDS: MAGNESIUM HYDROXIDE 30 ML UDC PO (08:01)
[2018-03-26] MEDS: ASPIRIN EC 81 MG TABLET PO (08:02)
--- NOTE | 2018-03-26 08:03 | P.PN_ITS ---
Subjective Date Patient Seen: 03/26/18 Time Patient Seen: 08:00 Interval history: Patient is postop day [address] Horta. She is stil having a lot of pain. She was on a continuous SHEET METAL LAY OUT WORKER for pain which helped with pain management but last night her O2 saturation dropped and she is on a standard SHEET METAL LAY OUT WORKER now which is not really controlling her pain. Has not been able to mobilize with physical therapy. Castillo catheter still in. BP has been running low. 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 She has help when she goes home. Exam Vital Signs (past 8 hours): - 03/26/18 00:54 03/26/18 03:17 03/26/18 05:03 Temperature 99.8 F H 98.3 F Pulse Rate 87 97 H Respiratory Rate 18 18 Blood Pressure 80/40 L 93/45 L 103/54 L Pulse Oximetry 93 95 Oxygen Delivery Method Room Air Oxygen Flow Rate 0 Narrative Exam Narrative: Pt in bed. Alert orient x3. Surgical dressing had soaked through. No active bleeding. New dressing applied with 4x4's and coversite. Thomas calves soft and nontender. Meovac drain in - 35ml . Castillo in. 5/5 BLE. Numbness in toes. Objective Labs Result Diagrams: 03/26/18 04:55 03/25/18 05:45 Labs: Laboratory Results - last 24 hr 03/26/18 04:55 WBC 10.8 RBC 2.24 L Hgb 7.6 L Hct 22.1 L MCV 98.4 MCH 33.8 MCHC 34.4 RDW 12.2 Plt Count 167 Neut % (Auto) 74.7 Lymph % (Auto) 14.8 L Irwin % (Auto) 8.4 Eos % (Auto) 1.8 L Baso % (Auto) 0.3 Neut # (Auto) 8100 H Assessment & Plan Post-op Postoperative Procedures Operation Date: 03/24/18 07:45 Actual Procedures Side Surgeon p T10-L2 Post Instru. Fusion w/Bone Graft. L1-2 Ant Osteotomy & Instru. Fusion. RMVL old screws. Revision Laminectomy L5-S1(LEFT) Yinka Horta MD PD 2. One dose of dexamethasone 10mg to help with post op pain. Continue SHEET METAL LAY OUT WORKER today will try to convert patient to oral pain meds tomorrow. Increase diazapem to 4mg q4h. NS bolus 500ml for hypotension. Iron and VT C for post op anemia. Mobile with PT. D/C drain this afternoon. Continue Castillo until more mobile. Hope to D/C home in couple of days.
[2018-03-26] MEDS: ASCORBIC ACID 500 MG TABLET PO (08:49)
[2018-03-26] MEDS: POLYETHYLENE GLYCOL 3350 17 GM POWD.PACK PO (08:49)
[2018-03-26] MEDS: FERROUS SULFATE 325 MG TABLET PO (08:49)
[2018-03-26] MEDS: DEXAMETHASONE 4 MG TABLET 10 MG PO (08:49)
--- NOTE | 2018-03-26 09:47 | PT.IPTN ---
Current Diagnoses Scoliosis, unspecified (03/24/18) Spinal stenosis, lumbar region with neurogenic claudication (03/24/18) Arthrodesis status (03/24/18) Surgery Performed Operation Date: 03/24/18 07:45 Actual Procedures p T10-L2 Post Instru. Fusion w/Bone Graft. L1-2 Ant Osteotomy & Instru. Fusion. RMVL old screws. Revision Laminectomy L5-S1(LEFT) - Yinka Horta MD Physical Therapy Treatment Note M2 PT-IP Current Condition Start: 03/25/18 11:24 Freq: NEEDED Status: Active Protocol: Document 03/25/18 10:13 AB (Rec: 03/25/18 11:41 AB [id number]) Physical Therapy Current Condition Current Condition Evaluation Date 03/25/18 Treatment Diagnosis s/p T10-L2 posterior fusion and instrumentation; difficulty in walking Onset Date 03/24/18 Precautions Lumbar Precautions Log Roll No Twisting Limit Bending Lifting Restriction of 10 lbs Gait Belt above Incisional Area M3 PT-IP Subjective Start: 03/25/18 11:24 Freq: NEEDED Status: Active Protocol: Document 03/26/18 09:47 AB (Rec: 03/26/18 13:37 AB [id number]) Subjective Physical Therapy Visit Type Type Treatment Note Visit Start Time 09:47 Visit Stop Time 10:35 Total Visit Minutes 48 Number of ASSEMBLER GARMENT FORM Visits 0 Physical Therapy Visit Comments Patient Comments I need to move and keep my blood flowing Therapy Pain Assessment Pain When Pain Assessed At Rest Pain Present Pain Present Pain Reported Location lower back Intensity 7 Scale Used Numeric (1 - 10) Pain Management Techniques Apply Cold Timing of Activity with Medications M4 PT-IP Mobility and Gait Start: 03/25/18 11:24 Freq: NEEDED Status: Active Protocol: Document 03/26/18 09:47 AB (Rec: 03/26/18 13:37 AB [id number]) PT-Transfer Assessment Sit to and From Stand Sit to and from Stand Moderate Assistance 1 Person Assistance Use of Upper Extremities Equipment Transfer Assistive Device Gait Belt Front Wheeled Walker Orthotic/Prosthetic Devices or Brace: No Transfers Transfer Destination Chair Transfer Technique Stand Step Pivot Transfer Ability Level of Assist Moderate Assistance 1 Person Assistance Use of Upper Extremities Comments Mobility Comments pt with Hgb of 7.6 and Hct 22. 1 and nurse stated that doctor did not order transfusion for pt and will observe blood count and pt is also asymptomatic. checked on pt and pt is already standing with nursing and PT took over. BP while standing using FWW for support min A required: 79 /46. pt took steps using FWW mod A to get into chair. BP sitting on chair 90/46. pt rested and wanting to brush her teeth by the sink and does not want do it with table set up in front of her. educated pt on safety and agreed to brush her teeth by the sink but with a w/c behind her and to sit intermittently. pt ambulated ~ 5 ft using FWW from chair to w/c. pt rested and started brushing her teeth sitting on w/c but stood up for rinsing requiring mod A and cues. pt. was able to maintain standing using FWW for support min to mod A and cues while completing brushing her teeth. pt instructed to sit down. BP afterwards: 84/ 49. BP after 2 min of resting : 87/44. pt rested for ~ 2min again: 81/45. pt completed stand pivot transfer to chair using FWW mod A and cues. positioned pt on chair with LE elevated and semi reclined. BP checked: 99/53. M5 PT-IP Objective Assessments Start: 03/25/18 11:24 Freq: NEEDED Status: Active Protocol: Document 03/25/18 10:13 AB (Rec: 03/25/18 11:41 AB [id number]) Orientation Orientation/Cognition Level of Alertness Alert Orientation Name Age Birthday Month Date Year Day of Week Place Situation Safety Awareness Decreased Safety Awareness Gross Range of Motion Lower Extremity ROM Assessment Within Functional Limits Strength Lower Extremity Strength Assessment Bilaterally Impaired Hip 4-/5 Knee 4-/5 Muscle Tone Muscle Tone WNL Yes M6 PT-IP Treatment Start: 03/25/18 11:24 Freq: NEEDED Status: Active Protocol: Document 03/26/18 09:47 AB (Rec: 03/26/18 13:37 AB [id number]) Physical Therapy Treatment Education Education Provided Precautions Safety M7 PT-IP Assessment and Plan Start: 03/25/18 11:24 Freq: NEEDED Status: Active Protocol: Document 03/26/18 09:47 AB (Rec: 03/26/18 13:37 AB [id number]) PT Summary Assessment and Plan Potential Rehabilitation Potential Fair Summary Impairments Pain ROM Strength Balance Coordination Sensation Tone Cognition Bed Mobility Transfers Gait Activity Tolerance Progress Towards Goals Slow Progress due to Medical Issues Slow Progress due to Activity Tolerance Assessment Summary pt requiring one person assist with mobility and has limited activity tolerance due to decrease in BP. will continue to assess for d/c plans. Goals Bed Mobility Goal Standby Assistance Transfer Goal Standby Assistance Front Wheeled Walker Gait Goal Standby Assistance Front Wheel Walker Gait Distance 150 Other Goals up/down 3 steps with bialteral rails SBA Days to Meet Goals 3 Frequency of Treatment Frequency Of Treatment Twice a Day Treatment Plan Physical Therapy Treatment Plan Bed Mobility Training Transfer Training Gait Training Therapeutic Exercise Balance Retraining Post Op Education Discharge Planning Hot or Cold Pack Neuromuscular Re-ed Coordination Retraining Manual Therapy Recommendations To Nursing Amount of Assist Needed 1 Person Assist Discharge Recommendations PT Discharge Recommendations Home with 27/01 Assist Home Health
[2018-03-26] MEDS: SODIUM CHLORIDE 0.45% 500 ML 1000 ML IV (10:58)
--- NOTE | 2018-03-26 11:40 | OT.IP.TRT ---
Current Diagnoses Scoliosis, unspecified (03/24/18) Spinal stenosis, lumbar region with neurogenic claudication (03/24/18) Arthrodesis status (03/24/18) Surgery Performed Operation Date: 03/24/18 07:45 Actual Procedures p T10-L2 Post Instru. Fusion w/Bone Graft. L1-2 Ant Osteotomy & Instru. Fusion. RMVL old screws. Revision Laminectomy L5-S1(LEFT) - Yinka Horta MD Occupational Therapy Treatment Note M2 OT-IP Current Condition Start: 03/26/18 11:24 Freq: Status: Active Protocol: Document 03/25/18 11:58 PJM (Rec: 03/26/18 16:17 PJM [id number]) Occupational Therapy Current Condition Current Condition Evaluation Date 03/25/18 Treatment Diagnosis decreased self care, mobility s/p T10-L2 fusion, removal of old hardware Diagnosis Onset Date 03/24/18 Post Operative Precautions Lumbar Precautions Log Roll No Twisting Limit Bending Lifting Restriction of 10 lbs Gait Belt above Incisional Area M3 OT- IP Subjective and Pain Start: 03/26/18 11:24 Freq: Status: Active Protocol: Document 03/26/18 11:20 PJM (Rec: 03/26/18 16:29 PJM [id number]) OT- Subjective Occupational Therapy Visit Type Type Treatment Note Visit Start Time 11:06 Visit Stop Time 11:20 Total Visit Minutes 14 Notes RN requesting assist with getting pt back to bed due to poor pain control. Note pt's low H&H today (7.6/22.1) and pt hypotensive with P.T. but asymptomatic earlier this AM. Occupational Therapy Visit Comments Patient Comments I never thought the pain would be this bad. Pt using GAS CUTTER prior to transfer to bed. OT Pain Assessment Pain When Pain Assessed After Treatment Pain Present Pain Present Pain Reported Location lower back Intensity 9 Scale Used Numeric (1 - 10) Description Aching Acute Management Techniques Apply Cold Re-positioning Timing of Activity with Medications M7 OT- IP Mobility and Balance Start: 03/26/18 11:24 Freq: Status: Active Protocol: Document 03/26/18 11:20 PJM (Rec: 03/26/18 16:29 PJM [id number]) OT- Bed Mobility Assessment Sit to Supine Sit to Supine Assist Moderate Assistance 1 Person Assistance Bedrails Scooting Scooting to Edge of Bed Standby Assistance Scooting Up and Down in Bed Minimal Assistance 2 Person Assistance OT-Transfer Assessment Sit to and From Stand Sit to and from Stand Minimal Assistance 2 Person Assistance Transfers Transfer Ability Contact Guard Assistance Technique Transfer Destination Bed Transfer Technique Stand Step Pivot Devices Transfer Assistive Devices Gait Belt Front Wheeled Walker Comments Mobility Comments 2nd person assist for IV pole and SBA due to hypotension and low H&H. Pt positioned in L sidelying with icepack in place. OT- Balance Assessment Sitting Balance and Reactions Static Sitting Balance Ability Good Standing Balance and Reactions Static Standing Balance Ability Fair M9 OT- IP Assessment and Plan Start: 03/26/18 11:24 Freq: Status: Active Protocol: Document 03/26/18 11:20 PJ (Rec: 03/26/18 16:29 PJ [id number]) OT Summary Assessment and Plan Summary Progress Towards Goals Slow Progress due to Pain Slow Progress due to Medical Issues Assessment Summary Pt's participation continues to be limited by decreased pain control and drowsiness from GAS CUTTER. Pt also has low H&H and hypotension today; although asymptomatic. Pt moved well during transfer despite these issues. Anticipate pt will make good progress once pain better controlled and medical issues improve. Pt not yet ready for much ADL training. Will check pt's status in AM. Goals Days to Meet Goals 7 Frequency of Treatment Frequency Of Treatment Once a Day Treatment Plan OT Treatment Plan ADL Training Functional Mobility Patient/Family Education Discharge Planning Discharge Recommendations OT Discharge Recommendations Home with 27/01 Assist Other Discharge Recommendations vs SNF pending progress
[2018-03-26] MEDS: INSULIN ASPART 100 UNIT/ML INSULN PEN SUBCUT ×2 (12:12→16:29)
--- NOTE | 2018-03-26 12:17 | PC.NURSE ---
Addendum entered by Cindi Gómez R.N. 03/26/18 15:33: PER SILVIO, PHYSICAL THERAPIST, PATIENT'S PRE-OP BP WAS 87/61, SO EVIDENTLY SHE INDEED RUNS LOW SHE HAS REPORTED THAT SHE DOES. Original Note: hypotension: court snyder notified of hypotension overnight, crit, and pain control issues this am around 0730. she saw patient, ordered valium po and (decadron x1 dose). given per orders. patient had asymptomatic hypotension this am. when standing at side of bed bp 79/46, once sitting 84/49. denies lightheadedness or dizziness. marissa snyder notified and 500 cc's 1/2ns bolus given as ordered. modest but stable improvement. claudio is also aware of h/h this am. no transfusion ordered for today. recheck h/h tomorrow.
--- NOTE | 2018-03-26 15:00 | PT.IPTN ---
Current Diagnoses Scoliosis, unspecified (03/24/18) Spinal stenosis, lumbar region with neurogenic claudication (03/24/18) Arthrodesis status (03/24/18) Surgery Performed Operation Date: 03/24/18 07:45 Actual Procedures p T10-L2 Post Instru. Fusion w/Bone Graft. L1-2 Ant Osteotomy & Instru. Fusion. RMVL old screws. Revision Laminectomy L5-S1(LEFT) - Yinka Horta MD Physical Therapy Treatment Note M2 PT-IP Current Condition Start: 03/25/18 11:24 Freq: NEEDED Status: Active Protocol: Document 03/25/18 10:13 AB (Rec: 03/25/18 11:41 AB [id number]) Physical Therapy Current Condition Current Condition Evaluation Date 03/25/18 Treatment Diagnosis s/p T10-L2 posterior fusion and instrumentation; difficulty in walking Onset Date 03/24/18 Precautions Lumbar Precautions Log Roll No Twisting Limit Bending Lifting Restriction of 10 lbs Gait Belt above Incisional Area M3 PT-IP Subjective Start: 03/25/18 11:24 Freq: NEEDED Status: Active Protocol: Document 03/26/18 15:00 GGD (Rec: 03/26/18 16:46 GGD [email or web address]) Subjective Physical Therapy Visit Type Type Treatment Note Visit Start Time 13:50 Visit Stop Time 14:15 Total Visit Minutes 40 Notes returned from 1435 to 1500 Number of MANAGER DENTAL Visits 1 Physical Therapy Visit Comments Patient Comments Pt states she wants to walk in mack. Therapy Pain Assessment Pain When Pain Assessed At Rest Pain Present Pain Present Pain Reported Location lower back Intensity 10 Scale Used Numeric (1 - 10) M4 PT-IP Mobility and Gait Start: 03/25/18 11:24 Freq: NEEDED Status: Active Protocol: Document 03/26/18 15:00 GGD (Rec: 03/26/18 16:46 GGD [id number]) PT-Bed Mobility Assessment Rolling Type of Rolling Log Rolling Level of Assist Minimal Assistance 1 Person Assistance Supine to Sit Supine to Sit Minimal Assistance 1 Person Assistance Bedrails Scooting Scooting to Edge of Bed Contact Guard Assistance PT-Transfer Assessment Sit to and From Stand Sit to and from Stand Minimal Assistance 1 Person Assistance Use of Upper Extremities Equipment Transfer Assistive Device Gait Belt Front Wheeled Walker Orthotic/Prosthetic Devices or Brace: No Transfers Transfer Destination Bed Wheelchair Gait Assessment Gait Gait Assistance Required: Contact Guard Assist 1 Person Assist Distance (Feet) 150 Able to Maintain Weight Bearing Status Yes During Gait Assistive Devices Assistive Device Gait Belt Front Wheeled Walker Orthotic/Prosthetic Devices or Brace: No Gait Deviations General Gait Pattern Antalgic Decreased Stride Length Decreased Feet Clearance Factors Limiting Gait Function Factors Limiting Gait Function Decreased Activity Tolerance Decreased Strength Limited Range of Motion Pain Comments Gait Comments gait x 150 feet x 2 with CGA M5 PT-IP Objective Assessments Start: 03/25/18 11:24 Freq: NEEDED Status: Active Protocol: Document 03/25/18 10:13 AB (Rec: 03/25/18 11:41 AB [id number]) Orientation Orientation/Cognition Level of Alertness Alert Orientation Name Age Birthday Month Date Year Day of Week Place Situation Safety Awareness Decreased Safety Awareness Gross Range of Motion Lower Extremity ROM Assessment Within Functional Limits Strength Lower Extremity Strength Assessment Bilaterally Impaired Hip 4-/5 Knee 4-/5 Muscle Tone Muscle Tone WNL Yes M6 PT-IP Treatment Start: 03/25/18 11:24 Freq: NEEDED Status: Active Protocol: Document 03/26/18 15:00 GGD (Rec: 03/26/18 16:46 GGD [email or web address]) Physical Therapy Treatment Education Education Provided Precautions M7 PT-IP Assessment and Plan Start: 03/25/18 11:24 Freq: NEEDED Status: Active Protocol: Document 03/26/18 15:00 GGD (Rec: 03/26/18 16:46 GGD [email or web address]) PT Summary Assessment and Plan Summary Assessment Summary Pt improving with mobility. She still had decrease in BP, her pre-op BP was 87/61 on 03/11. She was able to ambulate with W/C follow without symptoms. She was safe and stable with gait, no light headiness. Frequency of Treatment Frequency Of Treatment Twice a Day Treatment Plan Physical Therapy Treatment Plan Bed Mobility Training Transfer Training Gait Training Therapeutic Exercise Balance Retraining Post Op Education Discharge Planning Hot or Cold Pack Neuromuscular Re-ed Coordination Retraining Manual Therapy Recommendations To Nursing Amount of Assist Needed 1 Person Assist Discharge Recommendations PT Discharge Recommendations Home with 27/01 Assist Home Health
--- NOTE | 2018-03-26 15:28 | PC.NURSE ---
PATIENT C/O 8-10/10 PAIN THROUGHOUT SHIFT. DID APPEAR VERY PAINFUL THIS AM, WITH RESTLESS LEGS IN BED. GIVEN VALIUM WITH RELIEF TO 7/10 PER PATIENT. SEE SHIFT ASSESSMENT R/T DRSG CHANGE. HV DC'D INTACT THIS AFTERNOON. PATIENT AMBULATED FROM RM 210 TO RM 223 TO VISIT HER FRIEND, AND THEN BACK AGAIN WITHOUT DIFFICULTY WITH PHYSICAL THERAPY THIS AFTERNOON. VICE PRESIDENT OF RECRUITING SETTINGS CHANGED PER NEW ORDER TO DILAUDID 0.2/10/6 W/ 0.1MG CONT. VERIFIED BY JS ELIAS. REPORT GIVEN TO JS ANDERSON.
[2018-03-26] MEDS: GABAPENTIN 300 MG CAPSULE PO (20:39)
[2018-03-26] MEDS: SIMVASTATIN 10 MG TABLET 5 MG PO (20:40)
[2018-03-26] MEDS: SENNOSIDES 8.6 MG TABLET 17.2 MG PO (20:40)
[2018-03-26] MEDS: INSULIN GLARGINE 100 UNIT/ML 3ML PEN 60 UNIT SUBCUT (20:40)
[2018-03-27] VITALS (9 sets, daily range): BP systolic 103–130; BP diastolic 55–65; PULSE 74–101; RESP 16–22; TEMP 36.7–37.2; O2SAT 94–98
[2018-03-27] MEDS: SODIUM CHLORIDE 0.9% 250 ML 21 ML IV (02:12)
[2018-03-27] MEDS: ALBUTEROL/IPRATROPIUM 3 ML AMPUL INH (02:15)
[2018-03-27] MEDS: diazePAM 2 MG TABLET PO (02:30)
--- NOTE | 2018-03-27 03:57 | PC.NURSE ---
Addendum entered by Adeline Pizarro R.N. 03/27/18 06:35: Patient states pain is 7/10 this morning but manageable with current use of SAMPLE DISPLAY PREPARER. Did request/medicated with Benadryl for complaint of itching under tape from dressing. Given MOM per request as still no BM. Correction to previous documentation: patient states she did pass flatus yesterday while up walking but none since. Original Note: 0315 Patient is alert and oriented. Initially having almost continuous coughing and states she is having difficulty clearing her secretions related to asthma; RT called and provided neb Rx which patient states is now feeling better. Sitting up on edge of bed with intermittent cough but is non productive. Has inspiratory wheezing in bilateral upper lobes but RA sat is 94%. HRR. BP improved tonight to 130/65. Denies nausea. Still not passing any flatus (denies any since surgery) and abdomen remains distended and firm. BT are very hypoactive and has not had BM since 03/23 despite several bowel medications. Up to walk in mack and did well with 1 assist and walker. Is able to turn herself. Dressing to back is CDI. Dressing to left hip with old drainage unchanged since last noc. Indwelling catheter remains intact with clear cj urine in good amount (1700cc emptied at this time). Chronic neuropathy in bilateral hands/feet unchanged. Was asleep at start of shift and when woke stated she was unable to move with pain at 10/10 but after using SAMPLE DISPLAY PREPARER pain is now down to 6/10; medicated with Valium for muscles spasms. Does have SAMPLE DISPLAY PREPARER infusing at 0.1mg/h + demand available as well. Had foot SCD's on at start of shift, but now requesting they be left off. Fall risk score remains high and bed alarm is activated.
[2018-03-27] MEDS: MINOCYCLINE HCL 100 MG CAPSULE PO (06:10)
[2018-03-27] MEDS: GEMFIBROZIL 600 MG TABLET PO ×2 (06:10→16:56)
[2018-03-27] MEDS: MAGNESIUM HYDROXIDE 30 ML UDC PO (06:10)
[2018-03-27] MEDS: HYDROMORPHONE PCA 6 MG/30 ML PCA.VIAL IV (06:14)
[2018-03-27] MEDS: diphenhydrAMINE 25 MG TABLET PO ×2 (06:19→21:56)
[2018-03-27 06:23] LABS: Hemoglobin 7.2 g/dL (12.0-16.0)
[2018-03-27 06:28] LABS: Hematocrit 21.1 % (36-46)
--- NOTE | 2018-03-27 07:52 | PM.PNPO.1 ---
Subjective Date Patient Seen: 03/27/18 Time Patient Seen: 07:52 Interval history: Patient is postop day 3 status post lumbar fusion by Dr. Horta. Pain is better today. She has been on continuous Dilaudid CHARTER BOAT OPERATOR. Zendejas still in but does not want to d/c zendejas yet because she is still putting out a lot of urine and unable to make it to the restroom in time. She is also complaining of abdominal distension and her BP has been low and blood sugars have been running in the 200s. She did get 1 dose of dexamethasone 10 mg yesterday. Has been able to get to side of bed and walk a little yesterday. Exam Vital Signs (past 8 hours): - 03/27/18 01:30 03/27/18 02:15 03/27/18 06:00 Temperature 98.0 F 98.7 F Pulse Rate 83 87 84 Respiratory Rate 18 20 18 Blood Pressure 130/65 112/60 Pulse Oximetry 97 97 Oxygen Delivery Method Room Air Oxygen Flow Rate 0 Narrative Exam Narrative: Patient lying in bed. She is able to get her self up to the side of the bed with minimal assistance. Zendejas in. CHARTER BOAT OPERATOR in. Back dressing clean dry and intact. 5/5 BLE strength. Numbness in bilateral feet. Bilateral calves soft and nontender. GI Inspection: distended, scar, striae and visible herniation Palpation: firm Percussion: tympanic to percussion Objective Labs Result Diagrams: 03/27/18 06:09 03/25/18 05:45 Labs: Laboratory Results - last 24 hr 03/27/18 06:09 Hgb 7.2 L Hct 21.1 L Assessment & Plan Post-op Postoperative Procedures Operation Date: 03/24/18 07:45 Actual Procedures Side Surgeon p T10-L2 Post Instru. Fusion w/Bone Graft. L1-2 Ant Osteotomy & Instru. Fusion. RMVL old screws. Revision Laminectomy L5-S1(LEFT) Yinka Horta MD patient is postop day 3. Will DC Dilaudid CHARTER BOAT OPERATOR and transition her to oral Dilaudid, 2-4 mg q.3h as needed pain. Contacted Dr. Younger who is the hospitalist on-call and he will see her for developing ilieus, DM, and hypotension. Post op anemia stable, VT C and Fe ordered yesterday. New HH for tomorrow. Continue PT. She can continue Zendejas today with D/C Zendejas tomorrow. Possible home in few days.
--- NOTE | 2018-03-27 07:59 | P.PN_ITS ---
Subjective Date Patient Seen: 03/27/18 Time Patient Seen: 07:52 Interval history: Patient is postop day 3 status post lumbar fusion by Dr. Horta. Pain is better today. She has been on continuous Dilaudid CLIENT ENGAGEMENT SPECIALIST. Zendejas still in but does not want to d/c zendejas yet because she is still putting out a lot of urine and unable to make it to the restroom in time. She is also complaining of abdominal distension and her BP has been low and blood sugars have been running in the 200s. She did get 1 dose of dexamethasone 10 mg yesterday. Has been able to get to side of bed and walk a little yesterday. Exam Vital Signs (past 8 hours): - 03/27/18 01:30 03/27/18 02:15 03/27/18 06:00 Temperature 98.0 F 98.7 F Pulse Rate 83 87 84 Respiratory Rate 18 20 18 Blood Pressure 130/65 112/60 Pulse Oximetry 97 97 Oxygen Delivery Method Room Air Oxygen Flow Rate 0 Narrative Exam Narrative: Patient lying in bed. She is able to get her self up to the side of the bed with minimal assistance. Zendejas in. CLIENT ENGAGEMENT SPECIALIST in. Back dressing clean dry and intact. 5/5 BLE strength. Numbness in bilateral feet. Bilateral calves soft and nontender. GI Inspection: distended, scar, striae and visible herniation Palpation: firm Percussion: tympanic to percussion Objective Labs Result Diagrams: 03/27/18 06:09 03/25/18 05:45 Labs: Laboratory Results - last 24 hr 03/27/18 06:09 Hgb 7.2 L Hct 21.1 L Assessment & Plan Post-op Postoperative Procedures Operation Date: 03/24/18 07:45 Actual Procedures Side Surgeon p T10-L2 Post Instru. Fusion w/Bone Graft. L1-2 Ant Osteotomy & Instru. Fusion. RMVL old screws. Revision Laminectomy L5-S1(LEFT) Yinka Horta MD patient is postop day 3. Will DC Dilaudid CLIENT ENGAGEMENT SPECIALIST and transition her to oral Dilaudid, 2-4 mg q.3h as needed pain. Contacted Dr. Younger who is the hospitalist on-call and he will see her for developing ilieus, DM, and hypotension. Post op anemia stable, VT C and Fe ordered yesterday. New HH for tomorrow. Continue PT. She can continue Zendejas today with D/C Zendejas tomorrow. Possible home in few days.
[2018-03-27] MEDS: ACETAMINOPHEN 325 MG TABLET 975 MG PO ×3 (08:45→22:04)
[2018-03-27] MEDS: INSULIN ASPART 100 UNIT/ML INSULN PEN SUBCUT ×3 (08:45→16:54)
[2018-03-27] MEDS: POLYETHYLENE GLYCOL 3350 17 GM POWD.PACK PO (08:45)
[2018-03-27] MEDS: SPIRONOLACTONE 50 MG TABLET 100 MG PO (08:46)
[2018-03-27] MEDS: ASCORBIC ACID 500 MG TABLET PO (08:46)
[2018-03-27] MEDS: DOCUSATE 100 MG CAPSULE PO ×2 (08:46→21:54)
[2018-03-27] MEDS: DULOXETINE 30 MG CAPSULE 60 MG PO (08:46)
[2018-03-27] MEDS: FERROUS SULFATE 325 MG TABLET PO (08:46)
[2018-03-27] MEDS: LISINOPRIL 5 MG TABLET PO (08:46)
[2018-03-27] MEDS: FUROSEMIDE 40 MG TABLET 80 MG PO (08:46)
--- NOTE | 2018-03-27 08:47 | OT.IP.TRT ---
Current Diagnoses Scoliosis, unspecified (03/24/18) Spinal stenosis, lumbar region with neurogenic claudication (03/24/18) Arthrodesis status (03/24/18) Surgery Performed Operation Date: 03/24/18 07:45 Actual Procedures p T10-L2 Post Instru. Fusion w/Bone Graft. L1-2 Ant Osteotomy & Instru. Fusion. RMVL old screws. Revision Laminectomy L5-S1(LEFT) - Yinka Horta MD Occupational Therapy Treatment Note M2 OT-IP Current Condition Start: 03/26/18 11:24 Freq: Status: Active Protocol: Document 03/25/18 11:58 PJM (Rec: 03/26/18 16:17 PJM [id number]) Occupational Therapy Current Condition Current Condition Evaluation Date 03/25/18 Treatment Diagnosis decreased self care, mobility s/p T10-L2 fusion, removal of old hardware Diagnosis Onset Date 03/24/18 Post Operative Precautions Lumbar Precautions Log Roll No Twisting Limit Bending Lifting Restriction of 10 lbs Gait Belt above Incisional Area M3 OT- IP Subjective and Pain Start: 03/26/18 11:24 Freq: Status: Active Protocol: Document 03/27/18 08:45 CCC (Rec: 03/27/18 08:47 CCC [id number]) OT- Subjective Occupational Therapy Visit Type Type Administrative Note Notes Pt low lab readings, HcT 21.2L and Hgb 7.2L, therefore to hold seeing pt for today for OT. To check on pt again tomorrow and hopefully will be more medically stable. Patient/Family Education Discharge Planning Discharge Recommendations OT Discharge Recommendations Home with 27/01 Assist Other Discharge Recommendations vs SNF pending progress
[2018-03-27] MEDS: ASPIRIN EC 81 MG TABLET PO (08:48)
[2018-03-27] MEDS: HYDROMORPHONE 2 MG TABLET PO ×2 (08:54→16:07)
--- NOTE | 2018-03-27 09:35 | PT.IPTN ---
Current Diagnoses Scoliosis, unspecified (03/24/18) Spinal stenosis, lumbar region with neurogenic claudication (03/24/18) Arthrodesis status (03/24/18) Surgery Performed Operation Date: 03/24/18 07:45 Actual Procedures p T10-L2 Post Instru. Fusion w/Bone Graft. L1-2 Ant Osteotomy & Instru. Fusion. RMVL old screws. Revision Laminectomy L5-S1(LEFT) - Yinka Horta MD Physical Therapy Treatment Note M2 PT-IP Current Condition Start: 03/25/18 11:24 Freq: NEEDED Status: Active Protocol: Document 03/25/18 10:13 AB (Rec: 03/25/18 11:41 AB [id number]) Physical Therapy Current Condition Current Condition Evaluation Date 03/25/18 Treatment Diagnosis s/p T10-L2 posterior fusion and instrumentation; difficulty in walking Onset Date 03/24/18 Precautions Lumbar Precautions Log Roll No Twisting Limit Bending Lifting Restriction of 10 lbs Gait Belt above Incisional Area M3 PT-IP Subjective Start: 03/25/18 11:24 Freq: NEEDED Status: Active Protocol: Document 03/27/18 09:35 GGD (Rec: 03/27/18 12:19 GGD [id number]) Subjective Physical Therapy Visit Type Visit Start Time 09:00 Visit Stop Time 09:35 Total Visit Minutes 35 Number of CUSTOM 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 Therapy Pain Assessment Pain When Pain Assessed At Rest Pain Present Pain Present Pain Reported M4 PT-IP Mobility and Gait Start: 03/25/18 11:24 Freq: NEEDED Status: Active Protocol: Document 03/27/18 09:35 GGD (Rec: 03/27/18 12:19 GGD [id number]) PT-Bed Mobility Assessment Rolling Type of Rolling Log Rolling Level of Assist Contact Guard Assistance Supine to Sit Supine to Sit Contact Guard Assistance Bedrails Sit to Supine Sit to Supine Contact Guard Assistance Bedrails Scooting Scooting to Edge of Bed Standby Assistance PT-Transfer Assessment Sit to and From Stand Sit to and from Stand Contact Guard Assistance Use of Upper Extremities Equipment Transfer Assistive Device Gait Belt Front Wheeled Walker Orthotic/Prosthetic Devices or Brace: No Transfers Transfer Destination Chair Transfer Ability Level of Assist Contact Guard Assistance Use of Upper Extremities Gait Assessment Gait Gait Assistance Required: Contact Guard Assist 1 Person Assist Distance (Feet) 50 Able to Maintain Weight Bearing Status Yes During Gait Assistive Devices Assistive Device Gait Belt Front Wheeled Walker Orthotic/Prosthetic Devices or Brace: No Gait Deviations General Gait Pattern Antalgic Decreased Stride Length Decreased Feet Clearance Factors Limiting Gait Function Factors Limiting Gait Function Decreased Activity Tolerance Decreased Strength Limited Range of Motion Pain M5 PT-IP Objective Assessments Start: 03/25/18 11:24 Freq: NEEDED Status: Active Protocol: Document 03/25/18 10:13 AB (Rec: 03/25/18 11:41 AB [id number]) Orientation Orientation/Cognition Level of Alertness Alert Orientation Name Age Birthday Month Date Year Day of Week Place Situation Safety Awareness Decreased Safety Awareness Gross Range of Motion Lower Extremity ROM Assessment Within Functional Limits Strength Lower Extremity Strength Assessment Bilaterally Impaired Hip 4-/5 Knee 4-/5 Muscle Tone Muscle Tone WNL Yes M6 PT-IP Treatment Start: 03/25/18 11:24 Freq: NEEDED Status: Active Protocol: Document 03/27/18 09:35 GGD (Rec: 03/27/18 12:19 GGD [id number]) Physical Therapy Treatment Education Education Provided Precautions Safety M7 PT-IP Assessment and Plan Start: 03/25/18 11:24 Freq: NEEDED Status: Active Protocol: Document 03/27/18 09:35 GGD (Rec: 03/27/18 12:19 GGD [id number]) PT Summary Assessment and Plan Summary Assessment Summary Pt improved with bed mobility and didn't need assit. She did need bed rail, and has ordered on for home. She had low hematorit and hemoglobin, so limited her gait and exercise activity. She was informed that she needs assistance in room for mobility. Frequency of Treatment Frequency Of Treatment Twice a Day Treatment Plan Physical Therapy Treatment Plan Bed Mobility Training Transfer Training Gait Training Therapeutic Exercise Balance Retraining Post Op Education Discharge Planning Hot or Cold Pack Neuromuscular Re-ed Coordination Retraining Manual Therapy Other Recommendations and Next Treatment stairs before D/C Focus Recommendations To Nursing Amount of Assist Needed 1 Person Assist Discharge Recommendations PT Discharge Recommendations Home with Assistance
[2018-03-27] MEDS: INSULIN NPH 100 UNIT/ML VIAL 10 UNIT SUBCUT (10:40)
[2018-03-27] MEDS: METHYLNALTREXONE 12 MG/0.6 ML VIAL 8 MG SUBCUT (10:41)
[2018-03-27] MEDS: MAGNESIUM CITRATE 300 ML SOLUTION 150 ML PO (10:41)
--- NOTE | 2018-03-27 10:51 | PM.CN ---
History of Present Illness Chief complaint: T10-l2 fusion w/bone graft-see jennyfer notes Reason for consult: Poorly controlled diabetes and constipation Requesting provider: Yinka Horta Narrative: Patient is a 72-year-old female with diabetes mellitus type 2 on insulin, COPD/asthma , hypertension who is 3 days postop: 1. L1-2 anterior column osteotomy and fusion 2. T10 through L2 posterior fusion 3. T10 through L2 instrumentation 4. Removal of old segmental posterior spinous instrumentation from L2 through S1 5. Iliac crest bone graft 6.Revision left-sided laminotomy at L5-S1 and who consultation of hospitalist service is requested for the patient's poorly controlled diabetes and constipation. Patient states that she has had issues with constipation in the past. She states that were prior surgery she was placed on Dilaudid and had issues with constipation. She has not had a bowel movement since admission. She states that she is on NONDESTRUCTIVE TESTER and will initiate boluses 3-4 times per hour when awake. She is on Colace, senna, MiraLax. Despite these agents there has been no improvement with her constipation. She also has a history of diabetes mellitus. She states that she is on Lantus 60 units q.h.s.. She also uses sliding scale insulin. She states that she uses considerably higher doses of insulin when her glucose go as high as they did last night at 321. She is also on high dose correctional dose insulin here but her scale as lower here that what she uses at home. PFSH Medical History Arthritis (Acute) Asthma (Acute) BCC (basal cell carcinoma of skin) (Acute) Depression (Acute) Diabetes (Acute) Edema (Acute) GERD (gastroesophageal reflux disease) (Acute) [place] (hard of hearing) (Acute) History of hysterectomy (Acute) Low back pain (Acute) Melanoma (Acute) Numbness (Acute) Osteoarthritis (Acute) Psoriasis (Acute) Sciatica (Acute) Scoliosis (Acute) Whiplash (Acute) Surgical History History of bilateral cataract extraction (Acute) History of tonsillectomy and adenoidectomy (Acute) History of total right hip arthroplasty (Acute) Hx of appendectomy (Acute) Hx of bilateral breast reduction surgery (Acute) Hx of cholecystectomy (Acute) Hx of right breast biopsy (Acute) S/P lumbar laminectomy (Acute) S/p bilateral blepharoplasty (Acute) Social History household members: none Smoking Status: Former smoker alcohol intake: current Meds Home Medications Medication Instructions Recorded Confirmed Type furosemide 80 mg PO QAM #0 06/06/17 03/24/18 History gemfibrozil 600 mg PO BIDAC #0 06/06/17 03/24/18 History insulin glargine [Lantus U-100 60 unit SUBCUT BEDTIME #0 06/06/17 03/24/18 History Insulin] ipratropium-albuterol 3 ml INH PRN PRN #0 06/06/17 03/04/18 History lisinopril 5 mg PO QDAY #0 06/06/17 03/24/18 History minocycline 1,000 mg PO DAILY #0 06/06/17 03/24/18 History simvastatin 5 mg PO BEDTIME #0 06/06/17 03/24/18 History spironolactone [Aldactone] 100 mg PO QDAY #0 06/06/17 03/24/18 History tramadol 100 mg PO TID #0 06/06/17 03/24/18 History acetaminophen 1,000 mg PO TID 03/04/18 03/24/18 History aspirin [Aspir-81] 81 mg PO DAILY 03/04/18 03/24/18 History duloxetine [Cymbalta] 60 mg PO DAILY 03/04/18 03/24/18 History fluticasone [Flovent HFA] 2 puff INHALATION BID PRN 03/04/18 03/04/18 History insulin aspart U-100 [Novolog 11 units SUBCUT TID PRN 03/04/18 03/24/18 History U-100 Insulin aspart] tacrolimus [Protopic] 1 applic TOPICAL BID 03/04/18 03/04/18 History zolpidem [Intermezzo] 3.5 mg SUBLINGUAL QPM 03/04/18 03/24/18 History Allergies Allergy/AdvReac Type Severity Reaction Status Date / Time adhesive tape [ADHESIVE TAPE] Allergy Severe Swelling, Verified 03/24/18 06:45 rash codeine [CODEINE] AdvReac Severe Chest Pain Verified 03/24/18 06:45 metformin [METFORMIN] AdvReac Severe Fluid Verified 03/24/18 06:45 retention NSAIDS (Non-Steroidal AdvReac Severe fluid Verified 03/24/18 06:45 Anti-Inflamma retention [NSAIDS (NON-STEROIDAL ANTI-INFLAMMA] Review of Systems Review of Systems All systems reviewed & are unremarkable except as noted in HPI and below Exam Vital Signs (past 8 hours): - 03/27/18 06:00 03/27/18 07:50 03/27/18 09:22 Temperature 98.7 F 98.2 F Pulse Rate 84 101 H Respiratory Rate 18 16 Blood Pressure 112/60 114/57 L Pulse Oximetry 97 95 Oxygen Delivery Method Room Air Oxygen Flow Rate 0 Narrative Exam Narrative: NAD sitting in chair HEENT normocephalic atraumatic extraocular movement was intact pupils were equal round reactive fundi were not visualized oropharynx was clear a dental hygiene was good Neck is supple without thyromegaly bruits or jugular venous distension Respiratory clear to auscultation Cardiovascular heart regular rhythm S1-S2 was normal neural is sees rubs murmurs gallops present Abdomen was obese firm nontender bowel sounds were hypoactive Extremities/posterior thorax: Full range of motion trace pretibial edema for the call bandage of back was clean dry and intact Neurologic grossly physiologic Psychiatric awake alert oriented x3; mood and affect were normal Objective Labs Result Diagrams: 03/27/18 06:09 03/25/18 05:45 Labs: Laboratory Results - last 24 hr 03/27/18 06:09 Hgb 7.2 L Hct 21.1 L Assessment & Plan Plan: Assessment/Plan Narrative: 1. Probable opioid induced constipation Plan. Continue present bowel program Start Relistor 8 mcg subcu now and as needed Mag citrate 1 bottle x1 2. Diabetes mellitus type 2 on insulin Plan: Continue ADA diet Continue high-dose correctional insulin Continue Lantus 60 units q.h.s. One time NPH 10 units Continue adjust insulin therapy as necessary Thank you for allowing the hospitalist service help with management of her patient
--- NOTE | 2018-03-27 11:09 | CM.DPC ---
Hospitalist consulted today for the following: Patient is postop day 3 status post lumbar fusion by Dr. Horta. Pain is better today. She has been on continuous Dilaudid FRUIT THINNER. Zendejas still in but does not want to d/c zendejas yet because she is still putting out a lot of urine and unable to make it to the restroom in time. She is also complaining of abdominal distension and her BP has been low and blood sugars have been running in the 200s. She did get 1 dose of dexamethasone 10 mg yesterday. Has been able to get to side of bed and walk a little yesterday. Plan to d/c zendejas tomorrow, transition to PO pain meds. D/C home when medically stable.
[2018-03-27] MEDS: HYDROMORPHONE 2 MG TABLET 4 MG PO ×3 (12:03→18:44)
--- NOTE | 2018-03-27 14:50 | PT.IPTN ---
Current Diagnoses Scoliosis, unspecified (03/24/18) Spinal stenosis, lumbar region with neurogenic claudication (03/24/18) Arthrodesis status (03/24/18) Surgery Performed Operation Date: 03/24/18 07:45 Actual Procedures p T10-L2 Post Instru. Fusion w/Bone Graft. L1-2 Ant Osteotomy & Instru. Fusion. RMVL old screws. Revision Laminectomy L5-S1(LEFT) - Yinka Horta MD Physical Therapy Treatment Note M2 PT-IP Current Condition Start: 03/25/18 11:24 Freq: NEEDED Status: Active Protocol: Document 03/25/18 10:13 AB (Rec: 03/25/18 11:41 AB [id number]) Physical Therapy Current Condition Current Condition Evaluation Date 03/25/18 Treatment Diagnosis s/p T10-L2 posterior fusion and instrumentation; difficulty in walking Onset Date 03/24/18 Precautions Lumbar Precautions Log Roll No Twisting Limit Bending Lifting Restriction of 10 lbs Gait Belt above Incisional Area M3 PT-IP Subjective Start: 03/25/18 11:24 Freq: NEEDED Status: Active Protocol: Document 03/27/18 14:50 GGD (Rec: 03/27/18 15:51 GGD [id number]) Subjective Physical Therapy Visit Type Type Treatment Note Visit Start Time 14:15 Visit Stop Time 14:50 Total Visit Minutes 35 Number of STAMP PAD FINISHER Visits 3 Physical Therapy Visit Comments Patient Comments Pt states she would like to get back to bed. She reports she been getting up independent, closing the door and walking in room. Therapy Pain Assessment Pain When Pain Assessed At Rest Pain Present Pain Present Pain Reported Location lower back Intensity 7 Scale Used Numeric (1 - 10) M4 PT-IP Mobility and Gait Start: 03/25/18 11:24 Freq: NEEDED Status: Active Protocol: Document 03/27/18 14:50 GGD (Rec: 03/27/18 15:51 GGD [id number]) PT-Bed Mobility Assessment Rolling Type of Rolling Log Rolling Level of Assist Contact Guard Assistance Supine to Sit Supine to Sit Contact Guard Assistance Bedrails Sit to Supine Sit to Supine Contact Guard Assistance Bedrails Scooting Scooting to Edge of Bed Standby Assistance PT-Transfer Assessment Sit to and From Stand Sit to and from Stand Contact Guard Assistance Use of Upper Extremities Equipment Transfer Assistive Device Gait Belt Front Wheeled Walker Orthotic/Prosthetic Devices or Brace: No Transfers Transfer Destination Bed Transfer Ability Level of Assist Contact Guard Assistance Use of Upper Extremities Comments Mobility Comments Pt reminded of safety and needing staff to assist with mobility. Gait Assessment Gait Gait Assistance Required: Contact Guard Assist 1 Person Assist Distance (Feet) 75 Able to Maintain Weight Bearing Status Yes During Gait Assistive Devices Assistive Device Gait Belt Front Wheeled Walker Orthotic/Prosthetic Devices or Brace: No Gait Deviations General Gait Pattern Antalgic Decreased Stride Length Decreased Feet Clearance Factors Limiting Gait Function Factors Limiting Gait Function Decreased Activity Tolerance Decreased Strength Limited Range of Motion Pain M5 PT-IP Objective Assessments Start: 03/25/18 11:24 Freq: NEEDED Status: Active Protocol: Document 03/25/18 10:13 AB (Rec: 03/25/18 11:41 AB [id number]) Orientation Orientation/Cognition Level of Alertness Alert Orientation Name Age Birthday Month Date Year Day of Week Place Situation Safety Awareness Decreased Safety Awareness Gross Range of Motion Lower Extremity ROM Assessment Within Functional Limits Strength Lower Extremity Strength Assessment Bilaterally Impaired Hip 4-/5 Knee 4-/5 Muscle Tone Muscle Tone WNL Yes M6 PT-IP Treatment Start: 03/25/18 11:24 Freq: NEEDED Status: Active Protocol: Document 03/27/18 14:50 GGD (Rec: 03/27/18 15:51 GGD [id number]) Physical Therapy Treatment Education Education Provided Precautions Safety M7 PT-IP Assessment and Plan Start: 03/25/18 11:24 Freq: NEEDED Status: Active Protocol: Document 03/27/18 14:50 GGD (Rec: 03/27/18 15:51 GGD [id number]) PT Summary Assessment and Plan Summary Assessment Summary Pt continues to improve with mobility. She need cues for LBk precautions and safety. She needs stair training before D/C. Frequency of Treatment Frequency Of Treatment Twice a Day Treatment Plan Physical Therapy Treatment Plan Bed Mobility Training Transfer Training Gait Training Therapeutic Exercise Balance Retraining Post Op Education Discharge Planning Hot or Cold Pack Neuromuscular Re-ed Coordination Retraining Manual Therapy Other Recommendations and Next Treatment stairs before D/C Focus Recommendations To Nursing Amount of Assist Needed 1 Person Assist Discharge Recommendations PT Discharge Recommendations Home with Assistance
--- NOTE | 2018-03-27 14:52 | PC.NURSE ---
Pt attempted to have BM after mag cit and prune juice with no result. I&C TECH replaced with PO dilaudid and pt reports pain is just as well controlled. Now getting 4mg PO every 3 hours. Eating and drinking well. No N/v. Passing flatus. Dressing to back CDI.
[2018-03-27] MEDS: hydrOXYzine pamoate 25 MG CAPSULE PO (18:44)
[2018-03-27] MEDS: SENNOSIDES 8.6 MG TABLET 17.2 MG PO (21:54)
[2018-03-27] MEDS: GABAPENTIN 300 MG CAPSULE PO (21:54)
[2018-03-27] MEDS: INSULIN GLARGINE 100 UNIT/ML 3ML PEN 60 UNIT SUBCUT (21:54)
[2018-03-27] MEDS: SIMVASTATIN 10 MG TABLET 5 MG PO (21:58)
[2018-03-27] MEDS: TRAMADOL 50 MG TABLET PO (22:04)
[2018-03-28] MEDS: HYDROMORPHONE 2 MG TABLET 4 MG PO ×7 (00:04→23:57)
--- NOTE | 2018-03-28 00:23 | PC.NURSE ---
Addendum entered by Adeline Pizarro R.N. 03/28/18 06:39: Although having no pain at rest is insistent on getting 4mg of Dilaudid as wants to keep pain under control and will have pain when I start to move. Able to sleep past few hours and is appreciative as states she was exhausted as had not slept all day yesterday. Original Note: Addendum entered by Adeline Pizarro R.N. 03/28/18 03:19: Has slept for past couple hours but awakened now as per her request to have pain meds q3h to keep pain better managed. States no pain when lying still and 8/10 pain with movement. Now agreeable to getting into bed and is lying on right side with pillows under back. Original Note: Patient is alert and oriented. Breath sounds CTA with RA sat of 94%. HRR. Denies nausea. BT remain very hypoactive and abdomen is still quite distended and firm to touch; does state she has been passing flatus but still no BM since 03/23. Indwelling catheter remains in place per patient request and urine is clear yellow. Sitting up in chair tonight as states bed is too uncomfortable to lie in. Dressing to back is CDI and dressing to left hip is intact with no new drainage noted. States pain is currently 8/10 when lying still and 10/10 with movement; had Tramadol at 2200 without much relief so now medicated with Dilaudid and informed patient we could try the Valium if Dilaudid not effective enough. Went for walk in mack around entire acute care floor with walker and 1 assist; no dizziness or lightheadedness and states she actually has less pain when she is up walking. Declines offer of ice pack stating that does not help her pain. Refusing SCD's. Fall risk score is high and bed/chair alarm being used at all times.
[2018-03-28 06:18] LABS: Hemoglobin 7.1 g/dL (12.0-16.0)
[2018-03-28 06:20] LABS: Hematocrit 21.2 % (36-46)
[2018-03-28] MEDS: GEMFIBROZIL 600 MG TABLET PO ×2 (06:30→18:32)
[2018-03-28] MEDS: MINOCYCLINE HCL 100 MG CAPSULE PO (06:30)
[2018-03-28 07:40] VITALS: BP 93/49; PULSE 81; RESP 14; TEMP 36.9; O2SAT 98
[2018-03-28] MEDS: PEG3350/SOD SULF,BICARB,CL/KCL 4,000 ML SOLUTION 2000 ML PO (08:40)
[2018-03-28] MEDS: ACETAMINOPHEN 325 MG TABLET 975 MG PO ×3 (08:43→20:33)
[2018-03-28] MEDS: ASCORBIC ACID 500 MG TABLET PO (08:44)
[2018-03-28] MEDS: DOCUSATE 100 MG CAPSULE PO ×2 (08:45→20:34)
[2018-03-28] MEDS: FERROUS SULFATE 325 MG TABLET PO (08:45)
[2018-03-28] MEDS: ASPIRIN EC 81 MG TABLET PO (08:45)
[2018-03-28] MEDS: FUROSEMIDE 40 MG TABLET 80 MG PO (08:45)
[2018-03-28] MEDS: DULOXETINE 30 MG CAPSULE 60 MG PO (08:45)
[2018-03-28] MEDS: SPIRONOLACTONE 50 MG TABLET 100 MG PO (08:47)
[2018-03-28] MEDS: LISINOPRIL 5 MG TABLET PO (08:47)
--- NOTE | 2018-03-28 09:09 | CM.DPC ---
Referral faxed to and call place to Sara Patel
--- NOTE | 2018-03-28 09:41 | P.PN_ITS ---
Subjective Date Patient Seen: 03/28/18 Time Patient Seen: 09:40 Interval history: POD #4 status post fusion with Dr. Horta. Patient's H&H last 3 days; 7.6. 7.2/.1, 7.1/.2. She has been taking iron and vitamin C. She has developed opiod induced constipation during her stay, managed by hospitalist. Her blood sugar was 119 this AM. She has her Castillo in place. She is ambulating well with physical therapy. Her pain is well controlled. Exam Vital Signs (past 8 hours): - 03/28/18 07:40 Temperature 98.4 F Pulse Rate 81 Respiratory Rate 14 Blood Pressure 93/49 L Pulse Oximetry 98 Oxygen Delivery Method Room Air Oxygen Flow Rate 0 Narrative Exam Narrative: Patient is sitting up in bed in no acute distress. She is alert and oriented x3. Dressing on back is CDI. Calves are soft, compressible, nontender bilaterally. Sensation intact to light touch throughout bilateral lower extremities. Objective Labs Result Diagrams: 03/28/18 05:30 03/25/18 05:45 Labs: Laboratory Results - last 24 hr Laboratory Results - last 72 hr 03/26/18 03/27/18 03/28/18 04:55 06:09 05:30 WBC 10.8 RBC 2.24 L Hgb 7.6 L 7.2 L 7.1 L Hct 22.1 L 21.1 L 21.2 L MCV 98.4 MCH 33.8 MCHC 34.4 RDW 12.2 Plt Count 167 Neut % (Auto) 74.7 Lymph % (Auto) 14.8 L [place] % (Auto) 8.4 Eos % (Auto) 1.8 L Baso % (Auto) 0.3 Neut # (Auto) 8100 H 03/28/18 05:30 Hgb 7.1 L Hct 21.2 L Assessment & Plan Post-op (1) Postoperative anemia due to acute blood loss: Current Visit: Yes Status: Acute (2) Therapeutic opioid-induced constipation (OIC): Current Visit: Yes Status: Acute (3) Diabetes mellitus: Current Visit: Yes Status: Acute Postoperative Procedures Operation Date: 03/24/18 07:45 Actual Procedures Side Surgeon p T10-L2 Post Instru. Fusion w/Bone Graft. L1-2 Ant Osteotomy & Instru. Fusion. RMVL old screws. Revision Laminectomy L5-S1(LEFT) Yinka Horta MD POD #4 status post fusion with Dr. Horta. Ordered 2 units of PRBCs for postoperative anemia, DC'd iron as this can worsen constipation. Hospitalist will continue to manage blood sugars and opioid induced constipation. AMOS Castillo today. Continue to work with physical therapy. Plan to discharge once she is medically stable in next 1-2 days.
--- NOTE | 2018-03-28 11:29 | PT.IPTN ---
Current Diagnoses Acute posthemorrhagic anemia (03/24/18) Type 2 diabetes mellitus without complications (03/24/18) Drug induced constipation (03/24/18) Scoliosis, unspecified (03/24/18) Spinal stenosis, lumbar region with neurogenic claudication (03/24/18) Adverse effect of other opioids, initial encounter (03/24/18) Arthrodesis status (03/24/18) Surgery Performed Operation Date: 03/24/18 07:45 Actual Procedures p T10-L2 Post Instru. Fusion w/Bone Graft. L1-2 Ant Osteotomy & Instru. Fusion. RMVL old screws. Revision Laminectomy L5-S1(LEFT) - Yinka Horta MD Physical Therapy Treatment Note M2 PT-IP Current Condition Start: 03/25/18 11:24 Freq: NEEDED Status: Active Protocol: Document 03/25/18 10:13 AB (Rec: 03/25/18 11:41 AB [id number]) Physical Therapy Current Condition Current Condition Evaluation Date 03/25/18 Treatment Diagnosis s/p T10-L2 posterior fusion and instrumentation; difficulty in walking Onset Date 03/24/18 Precautions Lumbar Precautions Log Roll No Twisting Limit Bending Lifting Restriction of 10 lbs Gait Belt above Incisional Area M3 PT-IP Subjective Start: 03/25/18 11:24 Freq: NEEDED Status: Active Protocol: Document 03/28/18 11:25 GGD (Rec: 03/28/18 11:29 GGD [id number]) Subjective Physical Therapy Visit Type Notes Hold, pt to received blood. Will see afternoon. Other Recommendations and Next Treatment stairs before D/C Focus Recommendations To Nursing Amount of Assist Needed 1 Person Assist Discharge Recommendations PT Discharge Recommendations Home with Assistance
--- NOTE | 2018-03-28 11:59 | PC.NURSE ---
Day shift: 2 IV start attempts by this literary writer. 1 in each arm w/ 18 gauge. Next RN will use 20 gauge.
--- NOTE | 2018-03-28 12:22 | OT.IP.TRT ---
Current Diagnoses Acute posthemorrhagic anemia (03/24/18) Type 2 diabetes mellitus without complications (03/24/18) Drug induced constipation (03/24/18) Scoliosis, unspecified (03/24/18) Spinal stenosis, lumbar region with neurogenic claudication (03/24/18) Adverse effect of other opioids, initial encounter (03/24/18) Arthrodesis status (03/24/18) Surgery Performed Operation Date: 03/24/18 07:45 Actual Procedures p T10-L2 Post Instru. Fusion w/Bone Graft. L1-2 Ant Osteotomy & Instru. Fusion. RMVL old screws. Revision Laminectomy L5-S1(LEFT) - Yinka Horta MD Occupational Therapy Treatment Note M2 OT-IP Current Condition Start: 03/26/18 11:24 Freq: Status: Active Protocol: Document 03/25/18 11:58 PJM (Rec: 03/26/18 16:17 PJM [id number]) Occupational Therapy Current Condition Current Condition Evaluation Date 03/25/18 Treatment Diagnosis decreased self care, mobility s/p T10-L2 fusion, removal of old hardware Diagnosis Onset Date 03/24/18 Post Operative Precautions Lumbar Precautions Log Roll No Twisting Limit Bending Lifting Restriction of 10 lbs Gait Belt above Incisional Area M3 OT- IP Subjective and Pain Start: 03/26/18 11:24 Freq: Status: Active Protocol: Document 03/28/18 12:21 CCC (Rec: 03/28/18 12:22 CCC [id number]) OT- Subjective Occupational Therapy Visit Type Type Patient Unavailable Notes Pt to get blood therefore hold for OT treatment today.
--- NOTE | 2018-03-28 12:33 | PC.NURSE ---
Day shift: Pt reports feeling symptomatic of low H/H. Another RN in room now attempting IV start.
[2018-03-28] MEDS: METOCLOPRAMIDE 10 MG/2 ML INJ IV (12:54)
[2018-03-28 13:39] VITALS: BP 119/57; PULSE 70; RESP 17; TEMP 36.1
--- NOTE | 2018-03-28 13:43 | PM.PN.1 ---
Subjective Interval history: The patient's blood sugars are under better control. However she states that she still is not had a bowel movement since I saw her yesterday. She was given bottle of Mag citrate as well as Relistor 8 mcg subcu. She is not on FIREARMS SPECIALIST but is still receiving Dilaudid tablets for breakthrough pain Exam Vital Signs (past 8 hours): - 03/28/18 07:40 03/28/18 13:39 Temperature 98.4 F 97 F L Pulse Rate 81 70 Respiratory Rate 14 17 Blood Pressure 93/49 L 119/57 L Pulse Oximetry 98 Oxygen Delivery Method Room Air Oxygen Flow Rate 0 Narrative Exam Narrative: General NAD HEENT normocephalic atraumatic extraocular movement was intact pupils were equal round reactive fundi were not visualized oropharynx was clear a dental hygiene was good Neck is supple without thyromegaly bruits or jugular venous distension Respiratory clear to auscultation Cardiovascular heart regular rhythm S1-S2 was normal neural is sees rubs murmurs gallops present Abdomen was obese firm nontender bowel sounds were hypoactive Extremities/posterior thorax: Full range of motion trace pretibial edema for the call bandage of back was clean dry and intact Neurologic grossly physiologic Psychiatric awake alert oriented x3; mood and affect were normal Objective Labs Result Diagrams: 03/28/18 05:30 03/25/18 05:45 Labs: Laboratory Results - last 24 hr 03/28/18 03/28/18 05:30 10:25 Hgb 7.1 L Hct 21.2 L Blood Type O Positive Antibody Screen Negative Crossmatch See Detail Assessment & Plan Plan: Assessment/Plan Narrative: 1. Probable opioid induced constipation Still with ongoing problems with constipation despite Relistor and bottle of Mag citrate. I will give her GoLYTELY and another dose of Relistor to see if this will help Plan. Continue present bowel program Give another dose of Relistor but 12 mcg subcu GoLYTELY 2000 mL today 2. Diabetes mellitus type 2 on insulin Glycemic control improved Plan: Continue ADA diet Continue high-dose correctional insulin Continue Lantus 60 units q.h.s. Continue adjust insulin therapy as necessary
[2018-03-28 14:07] VITALS: BP 96/56; PULSE 73; RESP 16; TEMP 35.5
[2018-03-28] MEDS: METHYLNALTREXONE 12 MG/0.6 ML VIAL SUBCUT (14:26)
--- NOTE | 2018-03-28 15:30 | PT.IPTN ---
Current Diagnoses Acute posthemorrhagic anemia (03/24/18) Type 2 diabetes mellitus without complications (03/24/18) Drug induced constipation (03/24/18) Scoliosis, unspecified (03/24/18) Spinal stenosis, lumbar region with neurogenic claudication (03/24/18) Adverse effect of other opioids, initial encounter (03/24/18) Arthrodesis status (03/24/18) Surgery Performed Operation Date: 03/24/18 07:45 Actual Procedures p T10-L2 Post Instru. Fusion w/Bone Graft. L1-2 Ant Osteotomy & Instru. Fusion. RMVL old screws. Revision Laminectomy L5-S1(LEFT) - Yinka Horta MD Physical Therapy Treatment Note M2 PT-IP Current Condition Start: 03/25/18 11:24 Freq: NEEDED Status: Active Protocol: Document 03/25/18 10:13 AB (Rec: 03/25/18 11:41 AB [id number]) Physical Therapy Current Condition Current Condition Evaluation Date 03/25/18 Treatment Diagnosis s/p T10-L2 posterior fusion and instrumentation; difficulty in walking Onset Date 03/24/18 Precautions Lumbar Precautions Log Roll No Twisting Limit Bending Lifting Restriction of 10 lbs Gait Belt above Incisional Area M3 PT-IP Subjective Start: 03/25/18 11:24 Freq: NEEDED Status: Active Protocol: Document 03/28/18 15:29 RCC (Rec: 03/28/18 15:30 RCC [id number]) Subjective Physical Therapy Visit Type Type Patient Unavailable Notes pt still receiving transfusion with symptomic anemia earlier this date. Recommend holding PT this afternoon, and attempting tomorrow in a.m. due to low H&H and symptomatic earlier this date, transfusion still taking place . Frequency of Treatment Frequency Of Treatment Twice a Day Treatment Plan Physical Therapy Treatment Plan Bed Mobility Training Transfer Training Gait Training Therapeutic Exercise Balance Retraining Post Op Education Discharge Planning Hot or Cold Pack Neuromuscular Re-ed Coordination Retraining Manual Therapy Other Recommendations and Next Treatment stairs before D/C Focus Recommendations To Nursing Amount of Assist Needed 1 Person Assist Discharge Recommendations PT Discharge Recommendations Home with Assistance
[2018-03-28 15:35] VITALS: BP 108/58; PULSE 77; RESP 16; TEMP 36.5
[2018-03-28] MEDS: HYDROMORPHONE 2 MG TABLET PO (15:52)
--- NOTE | 2018-03-28 17:24 | PC.NURSE ---
Addendum entered by Evan Joseph R.N. 03/28/18 19:28: New onset of nausea reported by patient. Emesis back, ice pack and cool washrag provided for comfort to patient. This nurse offered Zofran for tx but patient refused stating, I just want to have a bowel movement. Original Note: patient is A&O x3 pleasant at times but is not being compliant w/ staff regarding the use of her call light for help. Patient has had a bed alarm on but is cont. to refuse to use call light and has been impulsive to BR and walking around in room. Patient is up to chair and yelled at aid Nikhil, stating dont you dare put that alarm on me. Patient was arguing that she does not need chair alarm and that she is just fine to get up and walk around and use the BR on her own. This nurse went in to discuss reasoning as to why we use bed and chair alarms. This nurse expressed concerns w/ patient regarding safety of patient without using call light. Patient was no happy with this nurse but agreed to put on chair alarm. As this nurse was leaving the patients room, patient states to nurse I will just take off this chair alarm when I need to get up because I am not waiting for no body. Discussed this situations and conversation w/ charge nurse Nery to make her in the know of what patient has stated to aid and this nurse. Call light w/ in reach of patient chair alarm is active.
[2018-03-28 19:30] VITALS: BP 130/67; PULSE 78; RESP 16; TEMP 36.4; O2SAT 96
[2018-03-28] MEDS: GABAPENTIN 300 MG CAPSULE PO (20:34)
[2018-03-28] MEDS: SENNOSIDES 8.6 MG TABLET 17.2 MG PO (20:34)
[2018-03-28] MEDS: SIMVASTATIN 10 MG TABLET 5 MG PO (20:35)
[2018-03-28] MEDS: INSULIN GLARGINE 100 UNIT/ML 3ML PEN 60 UNIT SUBCUT (20:41)
[2018-03-28] MEDS: hydrOXYzine pamoate 25 MG CAPSULE PO (23:58)
[2018-03-29 00:43] VITALS: BP 123/63; PULSE 82; RESP 16; TEMP 36.5; O2SAT 93
--- NOTE | 2018-03-29 01:34 | PC.NURSE ---
Addendum entered by Indiana Phoenix R.N. 03/29/18 06:51: Pt did not want woken up for her 0700 medications. Asked to be left alone to sleep. Pt is currently asleep in NAD. Will pass on to dayshift RN. Original Note: Pt noncompliant with fall/safety precautions. This RN personally placed chair alarm on patient. Per SUPERVISOR CONTINGENTS she was found in the room up and the patient admits she removed the chair alarm herself before getting up. She has done this twice this shift now. Precautions reinforced multiple times with patient but she continues to not comply and remove alarm. Ambulated in mack with FRANCE Bee as standby assist using FWW. Steady gait. Informed patient she will need to get back into the bed so we can place the bed alarm on so she can't remove it. Patient states I know how to turn that off too. Verbalizes understanding of fall precautions and her safety. She reports she is the exception to this rule. Will monitor closely.
[2018-03-29] MEDS: HYDROMORPHONE 2 MG TABLET 4 MG PO ×3 (03:55→11:01)
[2018-03-29 06:32] LABS: Hemoglobin 8.3 g/dL (12.0-16.0); Mean Corpuscular HGB Conc 34.3 % (30-36); Mean Corpuscular Hemoglobin 32.9 PG (26-34); Mean Corpuscular Volume 95.8 fL (80-100); Platelet Count 254 X10^3/uL (150-400); Red Blood Cell Count 2.54 X10^6/uL (4.0-5.2); Red Cell Distribution Width 13.8 % (11.6-14.8); White Blood Cell Count 9.2 X10^3/uL (4.5-11.0)
[2018-03-29 06:36] LABS: Hematocrit 24.3 % (36-46)
--- NOTE | 2018-03-29 07:18 | PC.NURSE ---
Day shift: Per NOC shift report Pt has been getting OOB w/o the help of staff. She can turn off bed alarm as well as d/c the chair alarm. Will remind her to use call light and call staff for help and when needing to get OOB.
--- NOTE | 2018-03-29 07:55 | PM.PN.1 ---
Subjective Interval history: Patient finally had a large bowel movement yesterday evening. She admits to some abdominal cramping. There is no nausea or vomiting. Exam Vital Signs (past 8 hours): - 03/29/18 00:43 Temperature 97.7 F Pulse Rate 82 Respiratory Rate 16 Blood Pressure 123/63 Pulse Oximetry 93 Oxygen Delivery Method Room Air Oxygen Flow Rate 0 Narrative Exam Narrative: General NAD HEENT normocephalic atraumatic extraocular movement was intact pupils were equal round reactive fundi were not visualized oropharynx was clear a dental hygiene was good Neck is supple without thyromegaly bruits or jugular venous distension Respiratory clear to auscultation Cardiovascular heart regular rhythm S1-S2 was normal neural is sees rubs murmurs gallops present Abdomen abdomen is less firm somewhat softer. No tenderness palpation bowel sounds active Extremities/posterior thorax: Full range of motion trace pretibial edema bandage of back was clean dry and intact. There was slight unilateral flank edema present Neurologic grossly physiologic Psychiatric awake alert oriented x3; mood and affect were normal Objective Labs Result Diagrams: 03/29/18 06:05 03/25/18 05:45 Labs: Laboratory Results - last 24 hr 03/28/18 03/29/18 10:25 06:05 WBC 9.2 RBC 2.54 L Hgb 8.3 L Hct 24.3 L MCV 95.8 MCH 32.9 MCHC 34.3 RDW 13.8 Plt Count 254 Blood Type O Positive Antibody Screen Negative Crossmatch See Detail Assessment & Plan Plan: Assessment/Plan Narrative: 1. Probable opioid induced constipation Patient is had a bowel movement. Will continue the Relistor for as needed usage. I will increase both her MiraLax and senna 1 b.i.d.. Will discontinue her Colace Plan. Increase MiraLax 17 g p.o. b.i.d. and senna 1 p.o. b.i.d. Relistor but 12 mcg subcu Q other day as needed 2. Diabetes mellitus type 2 on insulin Glycemic control improved Plan: Continue ADA diet Continue high-dose correctional insulin Continue Lantus 60 units q.h.s. Signing off As the patient is started to move her bowels and her blood sugars are much improved hospitalist service will sign off Please call if we can be of further assistance thank you
[2018-03-29 08:38] VITALS: BP 117/52; PULSE 83; RESP 18; TEMP 37.1; O2SAT 95
[2018-03-29] MEDS: ACETAMINOPHEN 325 MG TABLET 975 MG PO (08:39)
[2018-03-29] MEDS: GEMFIBROZIL 600 MG TABLET PO (08:40)
[2018-03-29] MEDS: ASCORBIC ACID 500 MG TABLET PO (08:40)
[2018-03-29] MEDS: MINOCYCLINE HCL 100 MG CAPSULE PO (08:40)
[2018-03-29] MEDS: DULOXETINE 30 MG CAPSULE 60 MG PO (08:41)
[2018-03-29] MEDS: ASPIRIN EC 81 MG TABLET PO (08:41)
[2018-03-29] MEDS: DOCUSATE 100 MG CAPSULE PO (08:41)
[2018-03-29] MEDS: FUROSEMIDE 40 MG TABLET 80 MG PO (08:41)
[2018-03-29] MEDS: LISINOPRIL 5 MG TABLET PO (08:42)
[2018-03-29] MEDS: SPIRONOLACTONE 50 MG TABLET 100 MG PO (08:42)
[2018-03-29] MEDS: TACROLIMUS 1 EACH TOP (08:42)
--- NOTE | 2018-03-29 09:30 | PT.IPTN ---
Current Diagnoses Acute posthemorrhagic anemia (03/24/18) Type 2 diabetes mellitus without complications (03/24/18) Drug induced constipation (03/24/18) Scoliosis, unspecified (03/24/18) Spinal stenosis, lumbar region with neurogenic claudication (03/24/18) Adverse effect of other opioids, initial encounter (03/24/18) Arthrodesis status (03/24/18) Surgery Performed Operation Date: 03/24/18 07:45 Actual Procedures p T10-L2 Post Instru. Fusion w/Bone Graft. L1-2 Ant Osteotomy & Instru. Fusion. RMVL old screws. Revision Laminectomy L5-S1(LEFT) - Yinka Horta MD Physical Therapy Treatment Note M2 PT-IP Current Condition Start: 03/25/18 11:24 Freq: NEEDED Status: Active Protocol: Document 03/29/18 09:30 RCC (Rec: 03/29/18 11:05 [facility] [id number]) Physical Therapy Current Condition Current Condition Evaluation Date 03/25/18 Treatment Diagnosis s/p T10-L2 posterior fusion and instrumentation; difficulty in walking Onset Date 03/24/18 Precautions Lumbar Precautions Log Roll No Twisting Limit Bending Lifting Restriction of 10 lbs Gait Belt above Incisional Area M3 PT-IP Subjective Start: 03/25/18 11:24 Freq: NEEDED Status: Active Protocol: Document 03/29/18 09:30 RCC (Rec: 03/29/18 11:05 [facility] [id number]) Subjective Physical Therapy Visit Type Type Treatment Note Visit Start Time 09:00 Visit Stop Time 09:30 Total Visit Minutes 30 Number of CUSTOMER SUPPORT COORDINATOR Visits 0 Physical Therapy Visit Comments Patient Comments pt wants to be cleared to go home today. M4 PT-IP Mobility and Gait Start: 03/25/18 11:24 Freq: NEEDED Status: Active Protocol: Document 03/29/18 09:30 RCC (Rec: 03/29/18 11:05 [facility] [id number]) PT-Transfer Assessment Sit to and From Stand Sit to and from Stand Independent Equipment Transfer Assistive Device Gait Belt Front Wheeled Walker Transfers Transfer Destination Chair Transfer Technique Stand Step Pivot Transfer Ability Level of Assist Independent Comments Mobility Comments VC to abide by precautions. Gait Assessment Gait Gait Assistance Required: Standby Assistance Distance (Feet) 200 Assistive Devices Assistive Device Gait Belt Front Wheeled Walker Gait Deviations General Gait Pattern Antalgic Decreased Stride Length Factors Limiting Gait Function Factors Limiting Gait Function Decreased Activity Tolerance Decreased Strength Pain Stair Climbing Assessment Evaluation Level of Assist On Stairs Standby Assistance Devices Stair Climbing Assistive Devices Left Railing Right Railing Technique/Endurance Stair Climbing Direction Ascend and Descend Stair Climbing Technique Step to Step Number of Steps Climbed 3 Query Text: Stair Climbing Set # Repetitions (reps) 1 PT-Balance Assessment Sitting Balance and Reactions Static Sitting Balance Ability Good Dynamic Sitting Balance Ability Good Standing Balance and Reactions Static Standing Balance Ability Good Dynamic Standing Balance Ability Fair Device Used FWW M5 PT-IP Objective Assessments Start: 03/25/18 11:24 Freq: NEEDED Status: Active Protocol: Document 03/29/18 09:30 RCC (Rec: 03/29/18 11:05 RCC [id number]) Orientation Orientation/Cognition Safety Awareness Decreased Safety Awareness M6 PT-IP Treatment Start: 03/25/18 11:24 Freq: NEEDED Status: Active Protocol: Document 03/29/18 09:30 RCC (Rec: 03/29/18 11:05 RCC [id number]) Physical Therapy Treatment Education Education Provided Precautions Safety M7 PT-IP Assessment and Plan Start: 03/25/18 11:24 Freq: NEEDED Status: Active Protocol: Document 03/29/18 09:30 RCC (Rec: 03/29/18 11:05 RCC [id number]) PT Summary Assessment and Plan Summary Progress Towards Goals Safe For Discharge Goals Met Assessment Summary POD #5 T10-L2 fusion. Pt is able to ambulate with a FWW safely, and managed stairs without difficulty using bilateral rails. Pt is cleared from PT to d/c when medically stable. Pt reports that she will be staying with a friend for as long as I need. Goals Bed Mobility Goal Standby Assistance Transfer Goal Standby Assistance Front Wheeled Walker Gait Goal Standby Assistance Front Wheel Walker Gait Distance 150 Other Goals up/down 3 steps with bialteral rails SBA Days to Meet Goals 3 Frequency of Treatment Frequency Of Treatment Twice a Day Treatment Plan Other Recommendations and Next Treatment gait, bed mobility Focus Recommendations To Nursing Amount of Assist Needed 1 Person Assist Discharge Recommendations PT Discharge Recommendations Home with Assistance
--- NOTE | 2018-03-29 11:34 | PC.NURSE ---
Day shift: Pt left unit at approx 1120 with friend to private care. Going to [place]. Medicated for pain. Paperwork signed and questions answered. Pt has all personal belongings.
--- NOTE | 2018-03-29 13:39 | CM.DPC ---
DCP: continued. Case again received yesterday and checked in with pt. She noted she was feeling better and that she was very pleased with the hospitalist consultation re her medical issues. She confirmed her d/c plan remained home with her friend (who was presently at the house caring for pt's pets). She noted her friend planned to stay on as long as she was needed. Spoke with Dr. Younger today in [facility]. He noted the medical issues were now stablized and that he would sign of case and leave to orthopedic care. Dr. Cleaning did come in later in morning as the rounding surgeon. He ok'd pt for d/c home with HH PT (his note is not yet available in EMR). Have updated Dustin/Sara FAULKNER and faxed the Face/Face and HH orders with request that he followup with pt to let her know when to expect the first PT visit. Left a message for PING Harvey to fax Dr. Cleaning's d/c summary or note for today when available to Sara FAULKNER. Pt left for home with her friend as per plan.
--- NOTE | 2018-04-02 10:48 | PM.DS.1 ---
History of Present Illness Date Patient Seen: 03/29/18 Chief complaint: T10-l2 fusion w/bone graft-see jennyfer notes Narrative: Patient seen bedside by Dr. Cleaning s/p T10-L2 TLIF on 03/24/[address] Horta. Patient's H/H has stabilized up to 8.3 after receiving 2 units of PRBCs, and she is stable and ready to be discharged home. Discharge Providers Date of admission: 03/24/18 06:14 Primary care physician: Farooq Weinstein DO Consults: 03/24/18 14:55 Consult to Discharge Planning Routine Comment: Consult to Occupational Therapy Evaluate & Treat Comment: Physician Instructions: Evaluate and treat Consult to Physical Therapy Evaluate & Treat Comment: Physician Instructions: Evaluate and Treat 03/27/18 08:06 Consult to Hospitalist Service Routine Comment: Consulting Provider: Arnel Younger Reason for consultation: ileus, hypotension, DM Has provider been notified: Yes 03/29/18 13:25 Consult to Home Health Routine Comment: s/p spinal surgery. pt going home today Reason For Exam: home health PT Discharge provider: Batsheva Almaraz PA-C Summary Discharge Diagnosis: 1. Lumbar spine stenosis with neurogenic claudication 2. Post-operative anemia 3. Opioid-induced constipation Hospital Course: Patient admitted to the hospital 03/24/18 s/p T10-L2 TLIF with Dr. Horta. Patient developed post-operative anemia, with a drop from Hgb of 9.0 on 03/25 to the mid-7's on the and to 7.1 on the 03/28. She received 2 units of PRBCs on 03/28 and her Hgb stabilized to 8.3 on 03/29. She was also taking iron supplements throughout this period. She developed opioid-induced constipation during her stay and had a medical consultation. Her constipation resolved by 03/29/18 and she was stable and ready for discharge home at that time. Status at Discharge Cognitive/behavioral status at discharge: Alert and oriented Functional status at discharge: uses cane/walker Overall status at discharge: patient is progressing back to baseline Time Spent with Patient Less than 30 minutes Exam Vital Signs (past 8 hours): Oxygen Delivery Method Room Air Oxygen Flow Rate 0 Narrative Exam Narrative: Patient well developed, well nourished, in no acute distress. No discharge noted on surgical dressing, no calf pain noted. Objective Labs Result Diagrams: 03/29/18 06:05 03/25/18 05:45 Discharge Plan Discharge Plan Patient Disposition: Home Discharge comment: discharge to home Discharge Med Rec/Prescriptions Prescriptions: New hydromorphone [Dilaudid] 2 mg tablet 2 mg PO Q4H PRN (Reason: pain) Qty: 60 RF: 0 Continue tramadol 50 MG tablet 100 mg PO TID Qty: 0 RF: 0 lisinopril 5 MG tablet 5 mg PO QDAY Qty: 0 RF: 0 insulin glargine [Lantus U-100 Insulin] 100 UNIT/1 ML solution 60 unit subcut BEDTIME Qty: 0 RF: 0 gemfibrozil 600 MG tablet 600 mg PO BIDAC Qty: 0 RF: 0 simvastatin 10 MG tablet 5 mg PO BEDTIME Qty: 0 RF: 0 minocycline 50 MG tablet 1,000 mg PO DAILY Qty: 0 RF: 0 spironolactone [Aldactone] 100 MG tablet 100 mg PO QDAY Qty: 0 RF: 0 furosemide 40 MG tablet 80 mg PO QAM Qty: 0 RF: 0 ipratropium-albuterol 3 ML solution for nebulization 3 ml INH PRN PRN (Reason: asthma) Qty: 0 RF: 0 aspirin [Aspir-81] 81 mg Tablet,Delayed Release (Dr/Ec) 81 mg PO DAILY RF: 0 acetaminophen 500 mg Tablet 1,000 mg PO TID RF: 0 insulin aspart U-100 [Novolog U-100 Insulin aspart] 100 unit/mL Solution 11 units subcut TID PRN (Reason: pt does prn, not prn/meals) RF: 0 tacrolimus [Protopic] 0.1 % Ointment 1 applic TOPICAL BID RF: 0 fluticasone [Flovent HFA] 110 mcg/actuation Hfa Aerosol Inhaler 2 puff INHALATION BID PRN (Reason: asthma) RF: 0 duloxetine [Cymbalta] 60 mg Capsule,Delayed Release(Dr/Ec) 60 mg PO DAILY RF: 0 zolpidem [Intermezzo] 3.5 mg Tablet, Sublingual 3.5 mg SUBLINGUAL QPM RF: 0 Follow up/Referrals: Farooq Weinstein DO [Primary Care Provider] - Provider Discharge Instructions Diet: Diet as Tolerated Activity: as tolerated Skin/Wound/Dressing Care Report to your healthcare provider any signs of infection, such as:: chills, fever, increased pain and unusual drainage Dressing: change prn Visit Report/Discharge Packet Instructions: DI for Spinal Fusion, DI for Constipation, Hydromorphone Visit Report Forms: Stroke Signs & Symptoms Discharge Data Primary Care Provider: Farooq Weinstein Attending Provider: Yinka Horta Admit Date/Time: 03/24/18 06:14 Discharges patient from system. Discharge Date/Time: 03/29/18 11:35
== END 2018-03-29 11:35 | disposition home or self-care (01) | DRG 454 ==
PROVIDERS: Physician Assistant; Physician Assistant Surgical; Admitting Provider Orthopaedic Surgery; Family Provider Family Medicine; PCP Family Medicine; Visit Provider Orthopaedic Surgery
PROC: 0SG00A0 Fusion of Lumbar Vertebral Joint with Interbody Fusion Device, Anterior Approach, Anterior Column, Open Approach (ICD-10-PCS; CPT 22558; principal; 2018-03-24 07:45)
DX: M48.062 Spinal stenosis, lumbar region with neurogenic claudication (principal); D62 Acute posthemorrhagic anemia; M41.26 Other idiopathic scoliosis, lumbar region; Z98.1 Arthrodesis status; I10 Essential (primary) hypertension; E11.9 Type 2 diabetes mellitus without complications; K21.9 Gastro-esophageal reflux disease without esophagitis; F32.9 Major depressive disorder, single episode, unspecified; J44.9 Chronic obstructive pulmonary disease, unspecified; Z87.891 Personal history of nicotine dependence; Z79.4 Long term (current) use of insulin; R60.0 Localized edema; I95.9 Hypotension, unspecified; K59.00 Constipation, unspecified; T40.2X5A Adverse effect of other opioids, initial encounter
CPT/HCPCS: 36415; 36430; 72082; 76001; 80048; 82962; 85014; 85018; 85025; 85027; 86850; 86900; 86901; 94640; 94762; 97116; 97162; 97165; 97530; 97535; C1776; C1788; P9016; J0131; J0330; J0595; J0690; J1170; J2060; J2250; J2274; J2405; J2704; J2765; J3010; J3410; J7050

== ENCOUNTER 2018-04-15 12:03 | Emergency (ER) | payer MEDICARE, OTHER, SELFPAY ==
[2018-03-24 08:07] VITALS: BMI 30.9
[2018-04-15 12:20] VITALS: BP 111/60; PULSE 82; RESP 18; TEMP 36.8; O2SAT 99
--- NOTE | 2018-04-15 12:59 | ED_ITS ---
HPI - Chest Pain <My Asher PA-C - Last Filed: 04/15/18 22:12> General Chief Complaint: Chest Pain Stated Complaint: LEFT LOWER ABDOMINAL PAIN,CHEST PAIN Time Seen by Provider: 04/15/18 12:09 Source: patient Mode of arrival: ambulatory Limitations: no limitations History of Present Illness HPI narrative: This 72-year-old female was sent in by her PCP today due to persistent left lower quadrant and ?groin? pain. She states that she has had this since she returned from her hospitalization here about 3 weeks ago. It is localized in the left lower abdomen, constant, perhaps worse in the evenings but without any clear exacerbating or alleviating features. Initially she thought this was secondary to constipation from pain medicines after her back surgery, but constipation has resolved and she has been having normal bowel movements without relief. She saw her PCP about 10 days ago and had labs done and an abdominal x-ray which did not show any acute findings aside from constipation at that point. She states that she has occasional nausea when her pain is worse, no vomiting. She denies any new urinary symptoms (some chronic hesitancy which is unchanged). She denies fever, chills, or sweats. She also notes that she has been having pain along her lower sternum and lower ribs for about the same amount of time. She states that she splints when she breathes because this is tender. She denies any dyspnea. She has not had any cough or wheeze. That pain worsens if she jerks, coughs, or sneezes. She wonders whether it might be because she was positioned on her abdomen from surgery. She denies any pain up in her chest. Denies pain in her extremities or neck. She denies any new swelling in the extremities. She states that she came in today due to pain not being better and advised by her PCP when she called for an appointment. She does not have any acutely changed or worsening symptoms today. Related Data Home Medications Medication Instructions Recorded Confirmed furosemide 80 mg PO QAM #0 06/06/17 04/15/18 gemfibrozil 600 mg PO BIDAC #0 06/06/17 04/15/18 insulin glargine [Lantus U-100 60 unit SUBCUT BEDTIME #0 06/06/17 04/15/18 Insulin] ipratropium-albuterol 3 ml INH Q4H PRN #0 06/06/17 04/15/18 minocycline 50 mg PO DAILY #0 06/06/17 04/15/18 simvastatin 5 mg PO BEDTIME #0 06/06/17 04/15/18 spironolactone [Aldactone] 100 mg PO QDAY #0 06/06/17 04/15/18 tramadol 100 mg PO TID #0 06/06/17 04/15/18 acetaminophen 1,000 mg PO TID 03/04/18 04/15/18 aspirin [Aspir-81] 81 mg PO BEDTIME 03/04/18 04/15/18 duloxetine [Cymbalta] 60 mg PO DAILY 03/04/18 04/15/18 insulin aspart U-100 [Novolog 1 dose SUBCUT TID PRN 03/04/18 04/15/18 U-100 Insulin aspart] zolpidem [Intermezzo] 3.5 mg SUBLINGUAL QPM 03/04/18 04/15/18 CoQ-10 1 cap PO DAILY 04/15/18 04/15/18 Qvar RediHaler 2 puff INHALATION BID 04/15/18 04/15/18 Super B Complex 1 tab PO DAILY 04/15/18 04/15/18 ascorbic acid (vitamin C) 1,000 mg PO DAILY 04/15/18 04/15/18 cholecalciferol (vitamin D3) 1 cap PO DAILY 04/15/18 04/15/18 [Vitamin D3] diphenhydramine HCl 50 mg PO BEDTIME 04/15/18 04/15/18 hydroxyzine pamoate [Vistaril] 25 mg PO Q6-8H PRN 04/15/18 04/15/18 melatonin 3 mg PO BEDTIME 04/15/18 04/15/18 multivitamin 1 tab PO DAILY 04/15/18 04/15/18 tacrolimus [Protopic] 1 applic TOPICAL BID 04/15/18 04/15/18 Previous Rx's Medication Instructions Recorded gabapentin 100 mg PO Q8H #30 cap 04/15/18 Allergies Allergy/AdvReac Type Severity Reaction Status Date / Time adhesive tape [ADHESIVE TAPE] Allergy Severe Swelling, Verified 03/24/18 06:45 rash codeine [CODEINE] AdvReac Severe Chest Pain Verified 03/24/18 06:45 metformin [METFORMIN] AdvReac Severe Fluid Verified 03/24/18 06:45 retention NSAIDS (Non-Steroidal AdvReac Severe fluid Verified 03/24/18 06:45 Anti-Inflamma retention [NSAIDS (NON-STEROIDAL ANTI-INFLAMMA] Review of Systems <SHERI Tyson Last Filed: 04/15/18 22:12> Review of Systems All systems reviewed & are unremarkable except as noted in HPI and below Exam <My Asher PA-C - Last Filed: 04/15/18 22:12> Narrative Exam Narrative: GENERAL APPEARANCE: Patient resting comfortably, in no distress HEENT: PERRL, EOMI, no scleral icterus NECK: Supple LUNGS: Clear to auscultation bilaterally with some splinting, no cough on exam CHEST: Tender to palpation over the inferior sternum as well as 10th through 12th ribs anteriorly, no tenderness elsewhere over the ribs or chest HEART: Rate and rhythm regular, normal S1 and S2, no S3 or S4. ABDOMEN: Soft, nondistended, bowel sounds present x 4 quadrants, no masses palpable, no hepatosplenomegaly. Localized tenderness over the left outer lower quadrant without guarding or rebound, no tenderness elsewhere EXTREMITIES: No edema, no cyanosis, no calf tenderness DERMATOLOGIC: No jaundice or exanthem. There are faint patches of yellow ecchymoses along the anterior inferior ribs and upper abdomen NEUROLOGIC: Alert and oriented with normal speech and coordination MS: L. hip full PROM, no point tenderness, negative Jon's test Initial Vital Signs Initial Vital Signs: Vital Signs Temperature 98.3 F 04/15/18 12:20 Pulse Rate 82 04/15/18 12:20 Respiratory Rate 18 04/15/18 12:20 Blood Pressure 111/60 04/15/18 12:20 Pulse Oximetry 99 04/15/18 12:20 <Marv Jha DO - Last Filed: 04/16/18 15:42> Initial Vital Signs Initial Vital Signs: Vital Signs Temperature 98.3 F 04/15/18 12:20 Pulse Rate 82 04/15/18 12:20 Respiratory Rate 18 04/15/18 12:20 Blood Pressure 111/60 04/15/18 12:20 Pulse Oximetry 99 04/15/18 12:20 Course <SHERI Tyson Last Filed: 04/15/18 22:12> Additional Information: Spoke with Dr. Josue who is covering for Dr. Horta. She has looked at CT scan and reviewed findings. She stated that is normal several weeks postop to see a fair amount of fluid as noted on the CT, and also this laminectomy defect can create some psoas pain and also somewhat of an impingment syndrome. She stated that surgery was quite extensive and these may be normal postoperative changes, especially given patient's lack of fever, white count, or worsening pain. She advised trial of low-dose gabapentin and follow up with Dr. Horta when he returns next week. Orders Ordered: Discontinued Medications Sodium Chloride (Normal Saline 0.9%) 1,000 mls @ 1,000 mls/hr IV BOLUS ONE Stop: 04/15/18 14:15 Last Infusion: 04/15/18 14:47 Dose: 0 mls/hr Admin: 04/15/18 13:22 Dose: 1,000 mls/hr Vital Signs - 8 hr 04/15/18 15:55 Pulse Rate 66 Respiratory Rate 17 Blood Pressure [Left Arm] 115/89 Pulse Oximetry 100 <Marv Jha DO - Last Filed: 04/16/18 15:42> Orders Ordered: Discontinued Medications Sodium Chloride (Normal Saline 0.9%) 1,000 mls @ 1,000 mls/hr IV BOLUS ONE Stop: 04/15/18 14:15 Last Infusion: 04/15/18 14:47 Dose: 0 mls/hr Admin: 04/15/18 13:22 Dose: 1,000 mls/hr Vital Signs - 8 hr 04/15/18 15:55 Pulse Rate 66 Respiratory Rate 17 Blood Pressure [Left Arm] 115/89 Pulse Oximetry 100 MDM - Chest Pain <My Asher PA-C - Last Filed: 04/15/18 22:12> Lab Data Result diagrams: 04/15/18 13:25 04/15/18 13:25 Lab Results 04/15/18 04/15/18 04/15/18 Range/Units 13:25 13:25 13:25 WBC 5.8 (4.5-11.0) X10^3/uL RBC 3.41 L (4.0-5.2) X10^6/uL Hgb 10.6 L (12.0-16.0) g/dL Hct 32.8 L (36-46) % MCV 96.1 (80-100) fL MCH 31.2 (26-34) PG MCHC 32.5 (30-36) % RDW 14.2 (11.6-14.8) % Plt Count 378 (150-400) X10^3/uL Neut % (Auto) 56.8 (50-75) % Lymph % (Auto) 27.2 (25-40) % Monroe % (Auto) 9.3 (3-14) % Eos % (Auto) 6.0 H (2-4) % Baso % (Auto) 0.7 (0-2) % Neut # (Auto) 3300 (7789-9274) /uL Sodium 142 (137-145) mmol/L Potassium 4.6 (3.4-5.1) mmol/L Chloride 100 (98-107) mmol/L Carbon Dioxide 30 (22-32) mmol/L BUN 20 H (7-17) mg/dL Creatinine 0.90 (0.52-1.04) mg/dL Estimated GFR > 60.0 (>60) mL/min BUN/Creatinine Ratio 22.2 H (6-22) Glucose 157 H (80-110) mg/dL Lactate 0.8 (0.7-2.1) mmol/L Calcium 9.7 (8.4-10.2) mg/dL Total Bilirubin 0.3 (0.2-1.3) mg/dL AST 31 (14-36) IU/L ALT 27 (9-52) IU/L Alkaline Phosphatase 270 H (38-126) U/L Total Protein 7.0 (6.3-8.2) g/dL Albumin 4.3 (3.5-5.0) g/dL Globulin 2.7 (1.7-4.1) g/dL Albumin/Globulin Ratio 1.6 (1.0-2.8) Lipase 32 (23-300) U/L Imaging Data Chest x-ray: Radiologist's impression: [address] [address] XRay Report Signed Patient: Gena Alaniz LMR#: [id number] : 5Acct:[id number] Age/Sex: 72 / FDate of Service: 04/15/18 Loc: ED Accession Number: [id number] Procedure: XR chest 2V Ordering Provider: My Asher P.A-C PROCEDURE: XR CHEST 2V INDICATIONS: Chest, rib, sternal pain TECHNIQUE: 2 views of the chest were acquired. COMPARISON: None. FINDINGS: Surgical changes and devices: Thoracolumbosacral spine surgery has been performed without evidence of device loosening or disruption. Lungs and pleura: No pleural effusions or pneumothorax. Lungs are normal considering reduced inspiratory volume. Mediastinum: Mediastinal contours are normal. Heart size is normal. Bones and chest wall: No suspicious bony abnormalities. Soft tissues appear unremarkable. IMPRESSION: Source of chest pain is not seen. Postoperative changes of recent spine surgery at the thoracolumbar junction extending into the lumbosacral spine is noted, without evidence of device loosening or disruption. Reduced inspiratory volume. No pneumonia found. Dictated by: Merritt Smith M.D. on 04/15/2018 at 14:42 Approved by: Merritt Smith M.D. on 04/15/2018 at 14:43 ECG Data Attestation: I personally reviewed and interpreted this ECG as follows: (Sinus arrythmia, rate 83, nl axis, unchanged from 01/21 outside EKG) <Marv Jha DO - Last Filed: 04/16/18 15:42> Lab Data Lab Results 04/15/18 04/15/18 04/15/18 Range/Units 13:25 13:25 13:25 WBC 5.8 (4.5-11.0) X10^3/uL RBC 3.41 L (4.0-5.2) X10^6/uL Hgb 10.6 L (12.0-16.0) g/dL Hct 32.8 L (36-46) % MCV 96.1 (80-100) fL MCH 31.2 (26-34) PG MCHC 32.5 (30-36) % RDW 14.2 (11.6-14.8) % Plt Count 378 (150-400) X10^3/uL Neut % (Auto) 56.8 (50-75) % Lymph % (Auto) 27.2 (25-40) % Monroe % (Auto) 9.3 (3-14) % Eos % (Auto) 6.0 H (2-4) % Baso % (Auto) 0.7 (0-2) % Neut # (Auto) 3300 (5292-8570) /uL Sodium 142 (137-145) mmol/L Potassium 4.6 (3.4-5.1) mmol/L Chloride 100 (98-107) mmol/L Carbon Dioxide 30 (22-32) mmol/L BUN 20 H (7-17) mg/dL Creatinine 0.90 (0.52-1.04) mg/dL Estimated GFR > 60.0 (>60) mL/min BUN/Creatinine Ratio 22.2 H (6-22) Glucose 157 H (80-110) mg/dL Lactate 0.8 (0.7-2.1) mmol/L Calcium 9.7 (8.4-10.2) mg/dL Total Bilirubin 0.3 (0.2-1.3) mg/dL AST 31 (14-36) IU/L ALT 27 (9-52) IU/L Alkaline Phosphatase 270 H (38-126) U/L Total Protein 7.0 (6.3-8.2) g/dL Albumin 4.3 (3.5-5.0) g/dL Globulin 2.7 (1.7-4.1) g/dL Albumin/Globulin Ratio 1.6 (1.0-2.8) Lipase 32 (23-300) U/L Discharge Plan Departure Patient Disposition: Home Clinical Impression: Postoperative abdominal pain Discharge Date/Time: 04/15/18 15:59 Interventions: ED Discharge Assessment Last Done: 04/15/18 15:57 Instructions: DI for Abdominal Pain-Adult, DI for Laminotomy Activity Restrictions/Additional Instructions: Please return as we talked about if you have any acutely worsening symptoms such as more pain, or new symptoms such as fever or vomiting. Please start gabapentin as recommended by Dr. Josue. Start 100 mg every 8 hr. If this does not make you sleepy you can titrate the dose (sleepiness is the main side effects so be careful not to drive). She thinks these postoperative fluid collections may be causing pressure on your abdomen and psoas muscles causing your pain due to impingement, but that they not appear to be an infection. She would like you to see Dr. Horta on Friday 04/20 for follow up. We have scheduled you at his [place] office at 4:30 p.m. Prescriptions: New gabapentin 100 mg capsule 100 mg PO Q8H Qty: 30 RF: 0 No Action tramadol 50 MG tablet 100 mg PO TID Qty: 0 RF: 0 insulin glargine [Lantus U-100 Insulin] 100 UNIT/1 ML solution 60 unit subcut BEDTIME Qty: 0 RF: 0 gemfibrozil 600 MG tablet 600 mg PO BIDAC Qty: 0 RF: 0 simvastatin 10 MG tablet 5 mg PO BEDTIME Qty: 0 RF: 0 minocycline 50 MG tablet 50 mg PO DAILY Qty: 0 RF: 0 spironolactone [Aldactone] 100 MG tablet 100 mg PO QDAY Qty: 0 RF: 0 furosemide 40 MG tablet 80 mg PO QAM Qty: 0 RF: 0 ipratropium-albuterol 3 ML solution for nebulization 3 ml INH Q4H PRN (Reason: asthma) Qty: 0 RF: 0 multivitamin Tablet 1 tab PO DAILY RF: 0 ascorbic acid (vitamin C) 1,000 mg Tablet 1,000 mg PO DAILY RF: 0 diphenhydramine HCl 50 mg Capsule 50 mg PO BEDTIME RF: 0 melatonin 3 mg Tablet 3 mg PO BEDTIME RF: 0 tacrolimus [Protopic] 0.1 % Ointment 1 applic Topical BID RF: 0 hydroxyzine pamoate [Vistaril] 25 mg Capsule 25 mg PO Q6-8H PRN (Reason: as directed) RF: 0 cholecalciferol (vitamin D3) [Vitamin D3] 2,000 unit Capsule 1 cap PO DAILY RF: 0 CoQ-10 1 cap PO DAILY RF: 0 Qvar RediHaler 2 puff Inhalation BID RF: 0 Super B Complex 1 tab PO DAILY RF: 0 aspirin [Aspir-81] 81 mg Tablet,Delayed Release (Dr/Ec) 81 mg PO BEDTIME RF: 0 acetaminophen 500 mg Tablet 1,000 mg PO TID RF: 0 insulin aspart U-100 [Novolog U-100 Insulin aspart] 100 unit/mL Solution 1 dose subcut TID PRN (Reason: pt does prn, not prn/meals) RF: 0 duloxetine [Cymbalta] 60 mg Capsule,Delayed Release(Dr/Ec) 60 mg PO DAILY RF: 0 zolpidem [Intermezzo] 3.5 mg Tablet, Sublingual 3.5 mg SUBLINGUAL QPM RF: 0 Referrals: Yinka Horta MD [Physician] - Farooq Weinstein DO [Primary Care Provider] - <Marv Jha DO - Last Filed: 04/16/18 15:42> Cosign ED Attending Bonny Attestation: I was available for consultation for this patients ED stay.
--- NOTE | 2018-04-15 13:17 | DI.CT.S_ITS ---
PROCEDURE: CT ABDOMEN PELVIS W CON INDICATIONS: LLQ pain since spine surgery 03/24 TECHNIQUE: After the administration of intravenous contrast, 5 mm thick sections acquired from the diaphragm to the symphysis. 5 mm coronal and sagittal reformats were acquired. For radiation dose reduction, the following was used: automated exposure control, adjustment of mA and/or kV according to patient size. COMPARISON: None. FINDINGS: Image quality: Excellent. ABDOMEN: Lung bases: Lung bases are clear. Heart size is normal. Solid organs: Liver is normal in size and enhancement. Gallbladder is not visualized. Biliary system is non dilated. Pancreas enhances normally. Spleen is normal in size and enhancement. No adrenal nodules. Kidneys demonstrate normal size and enhancement, without hydronephrosis. Peritoneum and bowel: Bowel loops demonstrate normal wall thickness and caliber. No free fluid or air. Nodes and vessels: No retroperitoneal or mesenteric adenopathy by size criteria. Aorta and inferior vena cava are normal in size. Miscellaneous: No ventral hernias. The thoracolumbar spine fusion procedure comprised of transverse pedicle screws and vertical fixation rods has been performed extending from T10-L2. Along the posterior paravertebral soft tissues what appears to be postoperative fluid collections can be seen at the T12-L1 axial level, measuring up to 2.4 x 3.2 cm in maximal AP and transverse dimension on the right needed 2.3 x 2.5 cm on the left. PELVIS: Genitourinary: Bladder wall thickness is normal. Miscellaneous: No inguinal hernias or adenopathy. Within the area of the L5-S1 interspace to the left of midline there is a large fluid collection that extends through what appears to be a laminectomy defect, containing a single central gas bubble, measuring up to 6.1 cm AP and 3.2 cm transverse. This has a maximal craniocaudad length of 4.4 cm. Bones: No suspicious bony lesions. No vertebral body compression fractures. IMPRESSION: 1. Gallbladder is not visualized but cholecystectomy metallic surgical clips also are not seen. Please correlate clinically. 2. Postsurgical changes discussed above of spine fusion extending from T10-L2. There are bilateral fluid collections at approximately the T12-L1 level of the lumbosacral spine at the posterior margin of the paraspinous musculature, abutting the subcutaneous fatty layer deeply, and it is unclear whether this could represent postoperative hematoma or seroma versus abscess formation. The absence of a densely enhancing rim around this fluid would argue towards uninfected fluid. 3. Large laminectomy defect on the left with associated relatively large fluid collection extends into the spinal canal and dorsally, with a single gas bubble within, and this measures up to 6.1 x 3.2 x 4.4 cm. Again, the presence or absence of infection cannot be established by this examination. Dictated by: eMrritt Smith M.D. on 04/15/2018 at 14:43 Approved by: Merritt Smith M.D. on 04/15/2018 at 14:52
--- NOTE | 2018-04-15 13:17 | DI.RAD.S_ITS ---
PROCEDURE: XR CHEST 2V INDICATIONS: Chest, rib, sternal pain TECHNIQUE: 2 views of the chest were acquired. COMPARISON: None. FINDINGS: Surgical changes and devices: Thoracolumbosacral spine surgery has been performed without evidence of device loosening or disruption. Lungs and pleura: No pleural effusions or pneumothorax. Lungs are normal considering reduced inspiratory volume. Mediastinum: Mediastinal contours are normal. Heart size is normal. Bones and chest wall: No suspicious bony abnormalities. Soft tissues appear unremarkable. IMPRESSION: Source of chest pain is not seen. Postoperative changes of recent spine surgery at the thoracolumbar junction extending into the lumbosacral spine is noted, without evidence of device loosening or disruption. Reduced inspiratory volume. No pneumonia found. Dictated by: Merritt Smith M.D. on 04/15/2018 at 14:42 Approved by: Merritt Smith M.D. on 04/15/2018 at 14:43
--- NOTE | 2018-04-15 13:18 | PC.NURSE ---
Pt has bruising on abdomen on right side and bilateral lower ribs,yellow in color which is where the pt is hurting. Pt also having tenderness in llq abdomen.
[2018-04-15] MEDS: SODIUM CHLORIDE 0.9% 1,000 ML 1000 ML IV (13:22)
[2018-04-15 13:42] LABS: Add Manual Diff / Slide Review NO; Basophils Percent Auto 0.7 % (0-2); Hematocrit 32.8 % (36-46); Hemoglobin 10.6 g/dL (12.0-16.0); Lymphocytes Percent Auto 27.2 % (25-40); Mean Corpuscular HGB Conc 32.5 % (30-36); Mean Corpuscular Hemoglobin 31.2 PG (26-34); Mean Corpuscular Volume 96.1 fL (80-100); Monocytes Percent Auto 9.3 % (3-14); Neutrophils Absolute Auto 3300 /uL (3000-5900); Neutrophils Percent Auto 56.8 % (50-75); Platelet Count 378 X10^3/uL (150-400); Red Blood Cell Count 3.41 X10^6/uL (4.0-5.2); Red Cell Distribution Width 14.2 % (11.6-14.8); White Blood Cell Count 5.8 X10^3/uL (4.5-11.0)
[2018-04-15 13:55] LABS: Alanine Aminotransferase 27 IU/L (9-52); Albumin 4.3 g/dL (3.5-5.0); Albumin Globulin Ratio 1.6 (1.0-2.8); Alkaline Phosphatase 270 U/L (38-126); Aspartate Aminotransferase 31 IU/L (14-36); BUN Creatinine Ratio 22.2 (6-22); Bilirubin Total 0.3 mg/dL (0.2-1.3); Blood Urea Nitrogen 20 mg/dL (7-17); Calcium 9.7 mg/dL (8.4-10.2); Carbon Dioxide 30 mmol/L (22-32); Chloride 100 mmol/L (98-107); Estimated Glomerular Filt Rate > 60.0 mL/min (>60); Globulin 2.7 g/dL (1.7-4.1); Glucose 157 mg/dL (80-110); HEMOLYSIS < 15 (0-50); Lactate (Lactic Acid) 0.8 mmol/L (0.7-2.1); Lipase 32 U/L (23-300); Potassium 4.6 mmol/L (3.4-5.1); Sodium 142 mmol/L (137-145)
[2018-04-15 14:00] VITALS: BP 108/52; PULSE 67; RESP 13; O2SAT 93
--- NOTE | 2018-04-15 14:09 | PC.NURSE ---
Pt ambulated with a slow but steady gait,offered wheelchair. Pt using bilateral walking sticks that she brought with her
[2018-04-15 15:55] VITALS: BP 115/89; PULSE 66; RESP 17; O2SAT 100
== END 2018-04-15 15:59 | disposition home or self-care (01) ==
PROVIDERS: Emergency Provider Internal Medicine; Family Provider Family Medicine; PCP Family Medicine
DX: R10.9 Unspecified abdominal pain (principal); R07.89 Other chest pain
CPT/HCPCS: 36591; 71046; 74177; 80053; 83605; 83690; 85025; 93005; 93041; 96360; 99284; 99285; Q9967

== ENCOUNTER → 2019-04-30 10:44 | Outpatient (CLI) | payer OTHER, SELFPAY ==
[2018-03-24 08:07] VITALS: BMI 30.9
--- NOTE | 2019-04-30 | DI.NM.S_ITS ---
PROCEDURE: NM BONE SCAN WHOLE BODY RADIOPHARMACEUTICAL: 19.5 mCi Tc-99m MDP IV. INDICATIONS: presence of right artifical hip joint TECHNIQUE: Delayed whole-body scintigrams were obtained approximately 3-4 hours after intravenous injection of radiotracer. Anterior and posterior views were acquired from vertex to feet. Additional left and right oblique views of the pelvis and hips were obtained. COMPARISON: [facility], CR, XR LUMBAR SPINE FLEXION EXTENSION, 04/21/2019, 9:26. [facility], CR, XR PELVIS WITH LATERAL HIP RIGHT, 04/21/2019, 9:34. [facility], MR, L-SPINE W&WO CONTRAST, 12/03/2016, 14:01. [facility], CT, L-SPINE WITHOUT CONTRAST, 12/30/2016, 11:45. FINDINGS: There is right hip arthroplasty. Low level increased activity around right hip prosthesis is consistent with postsurgical change. No lesions are identified in skull, sternum, clavicles, scapulae, ribs, bony pelvis, and visualized shafts of the long bones. Scoliosis. There is low level increased uptake in thoracic and lumbar spine with distribution correlating with degenerative and postsurgical changes seen on the comparison x-ray. There are foci of increased periarticular activity involving shoulders, wrists, hands, left hip, ankles and feet, compatible with degenerative/arthritic changes. IMPRESSION: 1. Right hip arthroplasty with expected postsurgical change. 2. Scoliosis with degenerative and postsurgical changes in thoracic and lumbar spine. 3. 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 Dictated by: Marcelo Motley M.D. on 04/30/2019 at 17:14 Approved by: Marcelo Motley M.D. on 04/30/2019 at 18:18
== END ==
PROVIDERS: PCP Family Medicine; Visit Provider Orthopaedic Surgery
DX: M25.551 Pain in right hip (principal); M41.26 Other idiopathic scoliosis, lumbar region; M47.814 Spondylosis without myelopathy or radiculopathy, thoracic region; M47.816 Spondylosis without myelopathy or radiculopathy, lumbar region; M15.0 Primary generalized (osteo)arthritis; Z96.641 Presence of right artificial hip joint; Z98.1 Arthrodesis status
CPT/HCPCS: 78306; A9503

== ENCOUNTER 2019-04-30 16:24 | Emergency (ER) | payer OTHER, SELFPAY ==
[2018-03-24 08:07] VITALS: BMI 30.9
[2019-04-30 16:05] VITALS: BP 111/57; PULSE 91; O2SAT 96
[2019-04-30 16:15] VITALS: BP 129/76; PULSE 81; RESP 18; O2SAT 99
[2019-04-30 16:43] VITALS: BP 111/57; PULSE 93; RESP 20; TEMP 36.9; O2SAT 97
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
[2019-04-30 17:00] VITALS: BP 138/76; PULSE 85; RESP 16; O2SAT 97
[2019-04-30 17:24] LABS: Add Manual Diff / Slide Review NO; Basophils Absolute Auto 100 /uL (0-100); Basophils Percent Auto 0.5 % (0-2); Eosinophils Absolute Auto 200 /uL (0-450); Eosinophils Percent Auto 1.6 % (2-4); Hematocrit 38.4 % (36-46); Lymphocytes Absolute Auto 2300 /uL (1100-4500); Mean Corpuscular HGB Conc 33.9 % (30-36); Mean Corpuscular Hemoglobin 33.2 PG (26-34); Monocytes Absolute Auto 800 /uL (0-900); Monocytes Percent Auto 8.1 % (3-14); Neutrophils Absolute Auto 7000 /uL (1500-7000); Neutrophils Percent Auto 67.8 % (50-75); Platelet Count 257 X10^3/uL (150-400); Red Blood Cell Count 3.92 X10^6/uL (4.0-5.2); Red Cell Distribution Width 12.6 % (11.6-14.8); White Blood Cell Count 10.3 X10^3/uL (4.5-11.0)
[2019-04-30 17:30] VITALS: BP 132/75; PULSE 87; RESP 18; O2SAT 97
[2019-04-30 17:30] LABS: Prothrombin Time 11.1 SECONDS (10.1-12.7)
[2019-04-30 17:33] LABS: PTT Partial Thromboplastin Tim 35 SECONDS (26.4-36.2)
[2019-04-30 17:36] LABS: BUN Creatinine Ratio 43.6 (6-22); Blood Urea Nitrogen 48 mg/dL (7-17); Calcium 9.6 mg/dL (8.4-10.2); Carbon Dioxide 26 mmol/L (22-32); Chloride 98 mmol/L (98-107); Estimated Glomerular Filt Rate 48.6 mL/min (>60); Glucose 213 mg/dL (80-110); HEMOLYSIS < 15 (0-50); Potassium 3.8 mmol/L (3.4-5.1); Sodium 136 mmol/L (137-145)
[2019-04-30 17:48] LABS: Troponin I < 0.012 ng/mL (0.01-0.034)
[2019-04-30 19:03] VITALS: BP 132/75; PULSE 69; RESP 12; O2SAT 98
== END 2019-04-30 19:13 | disposition home or self-care (01) ==
PROVIDERS: Emergency Provider Emergency Medicine; PCP Family Medicine
DX: S10.93XA Contusion of unspecified part of neck, initial encounter (principal); R07.89 Other chest pain; S09.93XA Unspecified injury of face, initial encounter; R22.1 Localized swelling, mass and lump, neck; V89.2XXA Person injured in unspecified motor-vehicle accident, traffic, initial encounter
CPT/HCPCS: 36415; 70486; 70491; 71045; 80048; 84484; 85025; 85610; 85730; 86850; 86900; 86901; 93005; 99283; 99285

== ENCOUNTER → 2020-08-22 11:57 | Outpatient (CLI) | payer OTHER, MEDICARE, SELFPAY ==
[2018-03-24 08:07] VITALS: BMI 30.9
--- NOTE | 2020-08-22 | DI.MRI.S_ITS ---
PROCEDURE: MR PELVIS WO CON INDICATIONS: Lower back and pelvic pain. TECHNIQUE: Noncontrast coronal and axial T1 spin echo and STIR through the bony pelvis. COMPARISON: [facility], MR, MR LUMBAR SPINE WO CON, 08/22/2020, 12:50. FINDINGS: Image quality: Excellent. Bones: Right hip arthroplasty. Lumbar spinal fixation hardware also noted. Presumed postoperative change/sequela seen at the L5-S1 level on the left. Please see lumbar spine MRI report dated same day for further characterization. Otherwise, bone marrow of the pelvic ring, sacrum, and proximal femurs show normal signal throughout. No intraosseous lesions or fractures identified. Lumbar spondylosis and facet arthropathy Tendons: Mild bilateral hip abductor insertional tendinopathy, right slightly greater than left Sacroiliac joints appear grossly unremarkable. The nearby proximal iliotibial band also appears intact. The iliopsoas tendon appears intact, without adjacent bursal fluid collections or evidence for impingement syndrome. Severe left hamstring origin tendinopathy/partial rupture, asymmetric to the right side The straight and reflected heads of the rectus femoris muscle origin appear intact, as well as the conjoint tendon. Soft tissues: Visualized muscles demonstrate normal bulk and internal signal. No joint effusions. No free pelvic fluid. Bladder wall thickness is normal. Genitourinary structures and bowel loops appear normal where visualized. IMPRESSION: High-grade partial rupture/strain of the left hamstring origin. Mild bilateral hip abductor insertional tendinopathy, right slightly greater than left. Postsurgical and degenerative changes as above. Dictated by: Amaury Sherman M.D. on 08/22/2020 at 14:25 Approved by: Amaury Sherman M.D. on 08/22/2020 at 14:33
--- NOTE | 2020-08-22 | DI.MRI.S_ITS ---
PROCEDURE: MR LUMBAR SPINE WO CON INDICATIONS: SCOLIOSIS,PAIN TECHNIQUE: Noncontrast sagittal T1 spin echo and T2 fast echo, sagittal STIR, axial T1 and T2 fast spin echo through the lumbar spine. In cases with scoliosis, additional coronal T2 fast spin echo may be performed. COMPARISON: [facility], CT, CT LUMBAR SPINE WITHOUT CONTRAST, 07/26/2020, 13:41. [facility] [place], CR, XR LUMBAR SPINE 2 OR 3 VIEWS, 06/09/2019, 14:08. [facility], MR, MR PELVIS WO CON, 08/22/2020, 12:50. FINDINGS: Image quality: Excellent. Alignment and Curvature: There is normal bony alignment. Convex left scoliosis of the lumbar spine. Bones: Postsurgical changes compatible with T10-L2 posterior fusion. Postsurgical changes compatible with L1-S1 interbody fusion. No acute vertebral body compression fractures. Spinal Cord: Conus medullaris terminates at the L1-2 disc level. Visualized cord demonstrates normal signal and size. Paraspinous Soft Tissues: No paravertebral masses. T12-L1: Loss of disc signal. Mild, diffuse disc bulge. Mild bilateral facet hypertrophy. Mild narrowing of the central canal. Mild bilateral neural foraminal narrowing. No neural compression. L1-L2: Status post fusion. Mild, diffuse disc bulge. Small central disc protrusion. Mild bilateral facet hypertrophy. Mild to moderate narrowing of the central canal. Moderate right and mild left neural foraminal narrowing. No neural compression. L2-L3: Status post fusion. Mild, diffuse disc bulge. Mild bilateral facet hypertrophy. Moderate narrowing of the central canal. Mild bilateral neural foraminal narrowing. No neural compression. L3-L4: Status post fusion. Mild bilateral facet hypertrophy. Mild narrowing of the central canal. Mild bilateral neural foraminal narrowing. No neural compression. L4-L5: Status post fusion. Mild right and moderate left facet hypertrophy. Mild narrowing of the central canal. Mild right and moderate to severe left neural foraminal narrowing with slight compression of the exiting left L4 nerve root. L5-S1: Status post fusion. Mild right facet hypertrophy. Status post left facetectomy. No central stenosis. Mild right and moderate left neural foraminal narrowing. No neural compression. There is deformity of the proximal left ala of the sacrum presumably related to postsurgical changes; please correlate with clinical history. 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 IMPRESSION: 1. Postsurgical changes compatible with prior multilevel fusion stable compared to prior CT scan obtained July 26, 2020. 2. Convex left scoliosis. 3. Multilevel facet arthropathy. 4. No severe central canal narrowing. 5. Moderate to severe left L4-L5 neural foraminal narrowing with slight compression of the exiting left L4 nerve root. Please correlate with clinical data. 6. No vertebral body compression fracture. Dictated by: Radha Jacques MD, PhD on 08/25/2020 at 16:14 Approved by: Radha Jacques MD, PhD on 08/25/2020 at 16:22
--- NOTE | 2020-08-22 11:59 | DI.MRI.S_ITS ---
PROCEDURE: MR THORACIC SPINE WO CON INDICATIONS: Scoliosis Spinal stenosis, lumbar Artificial hip TECHNIQUE: Noncontrast sagittal T1 spine echo and T2 fast spin echo, sagittal STIR, axial T1 and T2 fast spin echo through the thoracic spine. COMPARISON: None. FINDINGS: Image quality: Excellent. Alignment and Curvature: There is normal bony alignment. Bones: Partially visualized thoracolumbar spine fixation hardware. Bilateral transpedicular screws and posterior fusion rods noted at the T10, T11, T12 and L1 levels. Mild reactive endplate changes noted adjacent to the T8-T9 and T9-T10 discs. No acute vertebral body compression fractures. Mild physiologic wedging of the T9 vertebral body. Spinal Cord: Visualized spinal cord is normal in size and signal. Paraspinous Soft Tissues: No paravertebral masses. Miscellaneous: Loss of disc signal noted throughout the thoracic spine. Loss of disc height noted in the T7-T8, K2-P2-Q9-T10 discs. Small right central T6-T7 disc protrusion. Mild, diffuse T7-T8 disc bulge. Zrhy-wj-tbzjimul T8-T9 diffuse disc bulge. Moderate diffuse T9-T10 disc bulge. Mild bilateral T8-T9 facet hypertrophy. Moderate bilateral T9-T10 and T10-T11 facet hypertrophy. Mild to moderate T9-T10 central canal narrowing. Mild T8-T9 central canal narrowing. Moderate bilateral T8-T9 and T9-T10 neural foraminal narrowing. Mild bilateral T7-T8 neural foraminal narrowing. IMPRESSION: 1. Status post thoracolumbar spine fusion. 2. Multilevel degenerative disc disease. 3. Multilevel facet arthropathy. 4. Lhom-fr-xdbiwzyo T9-T10 central canal narrowing. Mild T8-T9 central canal narrowing. Loida a 4. Moderate bilateral T8-T9 and T9-T10 neural foraminal narrowing. Mild bilateral T7-T8 neural foraminal narrowing. 5. No neural compression. 6. No vertebral body compression fracture. Dictated by: Radha Jacques MD, PhD on 08/22/2020 at 15:43 Approved by: Radha Jacques MD, PhD on 08/22/2020 at 15:50
== END ==
PROVIDERS: PCP Family Medicine; Referring Provider Orthopaedic Surgery; Visit Provider Orthopaedic Surgery
DX: S76.812A Strain of other specified muscles, fascia and tendons at thigh level, left thigh, initial encounter (principal); M54.5 Low back pain; R10.2 Pelvic and perineal pain; M48.062 Spinal stenosis, lumbar region with neurogenic claudication; M51.34 Other intervertebral disc degeneration, thoracic region; M47.814 Spondylosis without myelopathy or radiculopathy, thoracic region; M48.04 Spinal stenosis, thoracic region; M41.86 Other forms of scoliosis, lumbar region; M47.816 Spondylosis without myelopathy or radiculopathy, lumbar region; M47.817 Spondylosis without myelopathy or radiculopathy, lumbosacral region; M48.061 Spinal stenosis, lumbar region without neurogenic claudication; Z96.641 Presence of right artificial hip joint; Z98.1 Arthrodesis status
CPT/HCPCS: 72146; 72148; 72195

== ENCOUNTER → 2023-03-27 11:45 | Outpatient (CLI) | payer MEDICARE, OTHER, SELFPAY ==
[2020-11-01 17:09] VITALS: BMI 30.9
--- NOTE | 2023-03-27 | DI.MRI.S_ITS ---
PROCEDURE: MR STROKE Pre- and post-contrast brain MRI, non-contrast brain MR angiogram, pre- and postcontrast neck MR angiogram INDICATIONS: Transient cerebral ischemic attack, unspecified TECHNIQUE: Brain: Noncontrast axial T1 spin echo, axial T2 fast spin echo, sagittal and axial FLAIR, coronal T2 fast spin echo, axial gradient echo, axial diffusion and ADC through the brain. After the administration of contrast, axial 3D VIBE of the cranial vasculature and brain. Brain MRA: Non-contrast 3-D time of flight MR angiogram, with multiple fabhyvm-yxikrwoid-vazsjxarwi (MIP) reformats performed. Neck MRA: Axial and sagittal TruFISP through the neck. Coronal dynamic MR angiogram during administration of contrast in the arterial and venous phases, with 3-dimenstional vabvrsd-mmztyuzqg-lilpwclxlp (MIP) reformats constructed from subtraction images. COMPARISON: None. FINDINGS: Image quality: Excellent. BRAIN: CSF spaces: Ventricles are normal in size and shape. Basal cisterns are patent. No extra-axial fluid collections. Brain: No intracranial bleeds or mass effects. There is mild diffuse cerebral volume loss. There is a moderate degree of patchy high FLAIR signal within the periventricular and subcortical white matter. Guzman-white matter interface is normal. Diffusion weighted images show no acute ischemic insults. Brainstem appears normal. Normal intravascular flow voids are present. No abnormal intracranial enhancement. Skull and face: Calvarial marrow signal is normal. Orbits appear normal. Sinuses: Sinuses and mastoids are clear. BRAIN MR ANGIOGRAM: Anterior circulation: Intracranial internal carotid arteries are normal in size and enhancement. The flow within the paired anterior cerebral arteries is normal and symmetric. The flow within the middle cerebral arteries is normal and symmetric. The anterior communicating artery is seen. No stenoses, occlusions, or aneurysms. Posterior circulation: The visualized portions of the vertebral arteries demonstrate normal caliber, and join to form a normal appearing basilar artery. Near origin of the left posterior cerebral artery. The flow within the posterior cerebral arteries is normal and symmetric. No stenoses, occlusions, or aneurysms. NECK MR ANGIOGRAM: Carotids: Great vessels demonstrate a conventional anatomy as they arise from the aortic arch. The origins of the common carotid arteries appear patent. The calibers and courses of both common carotid arteries are normal. The bifurcation regions appear normal bilaterally. 50% stenosis of the proximal right internal carotid artery. Left internal carotid artery is patent. Posterior circulation: There is a moderate to high-grade right vertebral artery origin stenosis. Remainder of right vertebral artery is patent. Left vertebral artery is patent. Miscellaneous: Subclavian arteries appear patent. Pre-contrast images through the neck show no soft tissue abnormalities. IMPRESSION: BRAIN MRI: 1. Volume loss and small vessel ischemic disease. 2. No acute process. No recent infarct. BRAIN MR ANGIOGRAM: Negative cerebral MR angiography. NECK MR ANGIOGRAM: 1. 50% right internal carotid artery stenosis. Patent left internal carotid artery. 2. Patent bilateral vertebral arteries. Dictated by: Aleshia Byrne M.D. on 03/27/2023 at 16:02 Approved by: Aleshia Byrne M.D. on 03/27/2023 at 16:05
--- NOTE | 2023-03-27 | DI.ECHO.S_ITS ---
[facility]---------+ [facility] +---------+ : : [address] : [place] : : : : [id number] : : : : Phone: [phone]+ Echocardiogram Report + + :Name: SAFIA SAAVEDRA Study Date: 03/27/2023 Height: 66 in : :[facility] ReadingLocation: Weight: 193 lb : : Gender: Female BSA: 2.0 m2 : :: 1945 Age: 77 yrs BP: 106/62 mmHg: :Reason For Study: TIA : :Ordering Physician: ADE, : :JOSE Performed By: Stacey Porter : :Referring: JOSE BOOKER : + + Interpretation Summary The ejection fraction is estimated to be 65-70%. Diastolic parameters suggest probable normal left ventricular diastolic function and normal filling pressures. The right ventricle is normal in size and function. There is trace aortic regurgitation. Pulmonary artery pressures cannot be estimated because of the lack of a measurable TR jet velocity but the IVC suggests a CVP of around 3 mmHg. Procedure: A two-dimensional transthoracic echocardiogram with color flow and Doppler was performed. The study quality was technically difficult. Comparison is made with the echocardiogram of 09/04/2021. A contrast injection of Definity was performed to improve assessment of LV function. The patient was in sinus rhythm with heart rates between 75-93 bpm during the exam. Left Ventricle: The left ventricle is normal in size and wall thickness. The ejection fraction is estimated to be 65-70%. Diastolic parameters suggest probable normal left ventricular diastolic function and normal filling pressures. Right Ventricle: The right ventricle is normal in size and function. Atria: The left atrial size is normal. Right atrial size is normal. There is no Doppler evidence for an interatrial shunt. Mitral Valve: The mitral valve is normal in structure and function. There is no mitral regurgitation noted. Aortic Valve: The aortic valve is trileaflet. The aortic valve opens well. There is no aortic valve stenosis. There is trace aortic regurgitation. Tricuspid Valve: The tricuspid valve is normal in structure and function. No tricuspid regurgitation. Pulmonary artery pressures cannot be estimated because of the lack of a measurable TR jet velocity but the IVC suggests a CVP of around 3 mmHg. Pulmonic Valve: The pulmonic valve is not well visualized. There is no pulmonic valvular regurgitation. Great Vessels: The aortic root is normal size. The dimensions of the ascending aorta are normal. The IVC is of normal diameter and collapses greater than 50% with a sniff. This suggests a low right atrial pressure of 3 mm Hg. Pericardium/ Pleura There is no pericardial effusion. There is no pleural effusion. MMode/2D Measurements & Calculations LVIDd: 4.9 cm LVOT diam: 2.0 cm LVIDs: 2.9 cm Ao root diam: 3.0 cm FS: 40.0 % asc Aorta Diam: 3.1 cm EPSS: 0.88 cm Ao Arch Diam (Prox Trans): 2.8 cm IVSd: 0.99 cm LVPWd: 1.0 cm LV garrett. diameter/BSA (cm/m^2): 2.5 LV sys. diameter/BSA (cm/m^2): 1.5 LA A2 area: 13.7 cm2 RA long axis: 3.6 cm LA A4 area: 14.4 cm2 RA area: 8.5 cm2 LA length (vol): 4.3 cm RA vol: 17.0 ml LA vol: 38.3 ml RA : 8.6 ml/m2 LA vol index: 19.5 ml/m2 IVC diam: 1.7 cm RVD1 (basal): 3.5 cm RVD2 (mid): 3.0 cm TAPSE: 1.7 cm Doppler Measurements & Calculations Ao V2 max: 147.2 cm/sec LVOT [place]: 99.0 cm/sec Ao V2 mean: 110.8 cm/sec LV V1 max P.9 mmHg Ao max P.7 mmHg LV V1 VTI: 16.1 cm Ao mean P.2 mmHg TILA(I,D): 2.0 cm2 Ao V2 VTI: 24.0 cm TILA(V,D): 2.0 cm2 sev ratio: 0.67 TILA indexed to BSA (cm^2/m^2): 1.0 MV E [place]: 52.0 cm/sec PA V2 max: 137.1 cm/sec MV A [place]: 56.7 cm/sec PA V2 mean: 97.7 cm/sec MV E/A: 0.92 PA mean P.2 mmHg Med [place]: 6.9 cm/sec PA pr(Accel): 49.5 mmHg E/E' med: 7.6 Lat [place]: 8.0 cm/sec E/E' lat: 6.5 E/e' average: 7.0 MV dec time: 0.25 sec SVLVOT): 48.2 ml Reading Physician:[id number] PM
== END ==
PROVIDERS: PCP Nurse Practitioner; Referring Provider Nurse Practitioner; Visit Provider Nurse Practitioner
DX: G45.9 Transient cerebral ischemic attack, unspecified (principal)
CPT/HCPCS: 70548; 70553; A9579; C8929; Q9957